=== PATIENT | male | born 1950 | race Caucasian/White ===

== ENCOUNTER → 2017-09-17 | Outpatient (CLI) | payer MEDICARE, OTHER ==
[2017-09-17 11:05] LABS: Basophils % (A) 0 %; Eosinophils # (A) 0.2 k/uL (0-0.7); Eosinophils % (A) 4 %; Lymphocytes # (A) 1.6 k/uL (1.0-4.8); Lymphocytes % (A) 43 %; MCHC 34.3 g/dL (31.0-37.0); MCV 84.4 fL (80.0-100.0); Mean Platelet Volume 8.3; Monocytes # (A) 0.3 k/uL (0-1.0); Monocytes % (A) 7 %; Neutrophils # (A) 1.6 k/uL (1.3-7.7); Neutrophils % (A) 42 %; Platelet Count 174 k/uL (150-450); RDW 13.1 % (11.5-15.5); WBC 3.8 k/uL (3.8-10.6)
[2017-09-17 11:29] LABS: ALT 29 U/L (21-72); AST 23 U/L (17-59); Albumin 4.5 g/dL (3.5-5.0); Alkaline Phosphatase 36 U/L (38-126); Anion Gap 14 mmol/L; Blood Urea Nitrogen 20 mg/dL (9-20); Calcium 10.3 mg/dL (8.4-10.2); Carbon Dioxide 26 mmol/L (22-30); Chloride 101 mmol/L (98-107); Cholesterol 157 mg/dL (<200); Creatine Kinase 60 U/L (55-170); Glucose 176 mg/dL (74-99); HDL Cholesterol 29 mg/dL (40-60); Potassium 4.2 mmol/L (3.5-5.1); Sodium 141 mmol/L (137-145); Total Bilirubin 0.5 mg/dL (0.2-1.3); Total Protein 7.6 g/dL (6.3-8.2); Triglycerides 433 mg/dL (<150); Uric Acid 4.6 mg/dL (3.5-8.5)
[2017-09-17 11:41] LABS: T4, Free (Free Thyroxine) 1.53 ng/dL (0.78-2.19)
[2017-09-17 16:43] LABS: Hemoglobin A1C 7.6 % (4.0-6.0)
== END | disposition home or self-care (01) ==
LOC: LABWHC1 10:12
PROVIDERS: ATTEND Physician Assistant
DX: E04.2 Nontoxic multinodular goiter (principal); I10 Essential (primary) hypertension; E78.00 Pure hypercholesterolemia, unspecified; E11.8 Type 2 diabetes mellitus with unspecified complications; E03.9 Hypothyroidism, unspecified
CPT/HCPCS: 36415; 80053; 80061; 82550; 83036; 83735; 84439; 84443; 84550; 85025

== ENCOUNTER → 2017-11-17 | Outpatient (CLI) | payer MEDICARE, OTHER ==
[2017-11-17 10:26] LABS: Albumin 4.5 g/dL (3.5-5.0); Calcium 10.1 mg/dL (8.4-10.2); Magnesium 1.6 mg/dL (1.6-2.3); Potassium 4.2 mmol/L (3.5-5.1); Total Bilirubin 0.6 mg/dL (0.2-1.3); Total Protein 7.1 g/dL (6.3-8.2)
[2017-11-17 10:42] LABS: T4, Free (Free Thyroxine) 1.45 ng/dL (0.78-2.19)
[2017-11-17 16:53] LABS: Hemoglobin A1C 6.4 % (4.0-6.0)
== END | disposition home or self-care (01) ==
LOC: LABWHC1 09:17
PROVIDERS: ATTEND Internal Medicine
DX: E04.2 Nontoxic multinodular goiter (principal); I10 Essential (primary) hypertension; E11.9 Type 2 diabetes mellitus without complications; E78.2 Mixed hyperlipidemia; E83.42 Hypomagnesemia
CPT/HCPCS: 36415; 80053; 80061; 83036; 83735; 84439; 84443

== ENCOUNTER 2018-02-12 23:58 | Emergency (ER) | payer MEDICARE, OTHER ==
[2018-02-13 00:25] VITALS: TEMP 98.1
--- NOTE | 2018-02-13 01:09 | ED ---
General Adult HPI - General Chief complaint: Shortness of Breath Stated complaint: Hypertension/SOB Time Seen by Provider: 02/13/18 00:41 Source: patient Mode of arrival: ambulatory Limitations: no limitations - History of Present Illness Initial comments: This patient is a 68-year-old man who presents to be evaluated for elevated blood pressure. The patient states that this evening he noted that his blood pressure was approximately 140, and that this is higher than usual for him. He states he has had this sometimes when he has to much salt in his diet. He took an additional dose of his lisinopril, and then had taken his blood pressure again and it was slowly increasing until the systolic blood pressure was 170 and he decided to be seen here. He states that he did feel slightly short of breath, when the blood pressure was that high but that it is better now. He was not having any chest pain, diaphoresis, nausea or vomiting, palpitations, lightheadedness or syncope. -: hour(s) Severity scale (1-10): 0 Consistency: constant Improves with: none Worsens with: none Treatments Prior to Arrival: other (Lisinopril) - Related Data Home Medications Medication Instructions Recorded Confirmed Albuterol Sulfate [Ventolin HFA] 1 - 2 puff INHALATION Q6H PRN 04/08/14 07/16/17 Aspirin 81 mg PO DAILY 04/08/14 07/16/17 Atorvastatin [Lipitor] 10 mg PO HS 04/08/14 07/16/17 Hydrochlorothiazide [Hydrodiuril] 25 mg PO DAILY 04/08/14 07/16/17 Metoprolol Tartrate [Lopressor] 50 mg PO HS 04/08/14 07/16/17 Tamsulosin HCl 0.4 mg PO HS 04/08/14 07/16/17 amLODIPine BESYLATE [Norvasc] 5 mg PO W/SUPPER 04/08/14 07/16/17 metFORMIN HCL [Glucophage] 1,000 mg PO BID 04/08/14 07/16/17 Cimetidine [Tagamet] 200 mg PO DAILY PRN 07/16/17 Exenatide Microspheres [Bydureon] 2 mg SQ WEEKLY PRN 07/16/17 Fenofibrate Nanocrystallized 145 mg PO QAM 07/16/17 [Tricor] Glimepiride [Amaryl] 1 mg PO AC-BRKFST 07/16/17 Icosapent Ethyl [Vascepa] 1 gm PO DAILY 07/16/17 Levothyroxine Sodium [Synthroid] 50 mcg PO DAILY 07/16/17 Lisinopril [Zestril] 5 mg PO 1200 07/16/17 Allergies Allergy/AdvReac Type Severity Reaction Status Date / Time moxifloxacin [From Avelox] Allergy lip Verified 02/13/18 00:25 swelling/SOB banana [Banana] AdvReac Unknown Verified 02/13/18 00:25 trees,grass Allergy Unknown Uncoded 02/13/18 00:25 Review of Systems ROS Statement: Those systems with pertinent positive or pertinent negative responses have been documented in the HPI. ROS Other: All systems not noted in ROS Statement are negative. Constitutional: Denies: fever, weakness Eyes: Denies: vision change Respiratory: Reports: dyspnea (Resolved). 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 Absent: scleral icterus, conjunctival injection ENT exam: Present: normal oropharynx Respiratory exam: Present: normal lung sounds bilaterally. Absent: respiratory distress, wheezes, rales, rhonchi, stridor Cardiovascular Exam: Present: regular rate, normal rhythm, normal heart sounds. Absent: systolic murmur, diastolic murmur, rubs, gallop GI/Abdominal exam: Present: soft. Absent: tenderness, guarding, rebound, mass, pulsatile mass Extremities exam: Present: normal inspection, normal capillary refill. Absent: pedal edema, calf tenderness Back exam: Present: normal inspection. Absent: CVA tenderness (R), CVA tenderness (L) Neurological exam: Present: alert, oriented X3 Skin exam: Present: warm, dry, intact, normal color. Absent: rash Course Vital Signs 02/13/18 02/13/18 00:16 01:34 Temperature 98.1 F Pulse Rate 79 70 Respiratory 16 18 Rate Blood Pressure 149/91 145/83 O2 Sat by Pulse 99 96 Oximetry EKG Findings - EKG Results: EKG: interpreted by JACKIE BORRERO, sinus rhythm, normal axis, normal QRS, normal ST/ T, no acute changes - [place], Pacemaker, Normal: Normal tracing: normal tracing Medical Decision Making - Medical Decision Making I rechecked the patient's blood pressure myself at the initial history and physical and it was 143/85. I had discussion with the patient of asymptomatic hypertension. We discussed additional measures that he can try at home. He will follow with his physician , to ensure that he does not require an increase in his antihypertensives. He does tell me that in the past he had been on higher dose of lisinopril but had been having good success with the lower dose. It is possible that he may require increasing back to his previous dose. We discussed appropriate follow- up and return parameters. Disposition Clinical Impression: Hypertension Disposition: HOME SELF-CARE Condition: Good Instructions: Hypertension (ED) Is patient prescribed a controlled substance at d/c from ED?: No Referrals: Raya Clark MD [Primary Care Provider] - 1-2 days
[2018-02-13 01:36] VITALS: BP 145/83; PULSE 70; RESP 18
== END 2018-02-13 01:43 | disposition home or self-care (01) ==
LOC: EC 23:58
DX: I10 Essential (primary) hypertension (principal); J45.909 Unspecified asthma, uncomplicated; E11.9 Type 2 diabetes mellitus without complications; K21.9 Gastro-esophageal reflux disease without esophagitis; E78.5 Hyperlipidemia, unspecified; E07.9 Disorder of thyroid, unspecified; Z79.82 Long term (current) use of aspirin; Z79.84 Long term (current) use of oral hypoglycemic drugs; Z79.899 Other long term (current) drug therapy; Z88.1 Allergy status to other antibiotic agents; Z91.018 Allergy to other foods; Z91.048 Other nonmedicinal substance allergy status
CPT/HCPCS: 93005; 99284

== ENCOUNTER → 2018-09-20 | Outpatient (CLI) | payer MEDICARE, OTHER ==
[2018-09-20 09:36] LABS: Basophils % (A) 1 %; Eosinophils # (A) 0.2 k/uL (0-0.7); Eosinophils % (A) 3 %; HCT 41.6 % (39.0-53.0); HGB 13.7 gm/dL (13.0-17.5); Lymphocytes # (A) 1.7 k/uL (1.0-4.8); Lymphocytes % (A) 39 %; MCH 29.1 pg (25.0-35.0); MCV 88.2 fL (80.0-100.0); Mean Platelet Volume 7.6; Monocytes # (A) 0.3 k/uL (0-1.0); Monocytes % (A) 7 %; Neutrophils % (A) 46 %; Platelet Count 201 k/uL (150-450); RBC 4.71 m/uL (4.30-5.90); RDW 13.4 % (11.5-15.5); WBC 4.4 k/uL (3.8-10.6)
[2018-09-20 09:38] LABS: Appearance,Urine Clear (Clear); Bilirubin,Urine Negative (Negative); Blood,Urine Negative (Negative); Color,Urine Yellow; Glucose,Urine (UA) Negative (Negative); Ketones,Urine Negative (Negative); Leukocyte Esterase,Urine Negative (Negative); Nitrite,Urine Negative (Negative); Protein,Urine Negative (Negative); Specific Gravity,Urine 1.014 (1.001-1.035); Urobilinogen,Urine <2.0 mg/dL (<2.0)
[2018-09-20 18:34] LABS: Magnesium 1.7 mg/dL (1.5-2.4)
[2018-09-20 18:43] LABS: Albumin 4.7 g/dL (3.80-4.90); Albumin/Globulin Ratio 2.14 (1.60-3.17); Anion Gap 8.3 mmol/L (4.00-12.00); Calcium 10.6 mg/dL (8.7-10.3); Carbon Dioxide 25.7 mmol/L (21.6-31.8); Globulin 2.2 g/dL (1.6-3.3); Potassium 4.4 mmol/L (3.5-5.5); Total Bilirubin 0.6 mg/dL (0.3-1.2); Total Protein 6.9 g/dL (6.2-8.2); Uric Acid 4.9 mg/dL (3.7-8.7)
[2018-09-20 18:44] LABS: T4, Free (Free Thyroxine) 1.5 ng/dL (0.80-1.80)
[2018-09-20 21:44] LABS: Hemoglobin A1C 6.5 % (4.0-6.0)
[2018-09-22 09:53] LABS: LDL Cholesterol,Calculated 72.2
[2018-09-22 10:02] LABS: VLDL Calculation 45.8
== END | disposition home or self-care (01) ==
LOC: LABWHC1 09:04
PROVIDERS: ATTEND Internal Medicine
DX: N40.1 Benign prostatic hyperplasia with lower urinary tract symptoms (principal); I10 Essential (primary) hypertension; E03.9 Hypothyroidism, unspecified; E11.8 Type 2 diabetes mellitus with unspecified complications; E55.9 Vitamin D deficiency, unspecified; E04.2 Nontoxic multinodular goiter; E78.2 Mixed hyperlipidemia
CPT/HCPCS: 36415; 80053; 80061; 81003; 82043; 82306; 82550; 82570; 83036; 83735; 84153; 84439; 84443; 84481; 84550; 85025

== ENCOUNTER → 2019-01-27 | Outpatient (CLI) | payer MEDICARE, OTHER ==
--- NOTE | 2019-01-27 16:09 | XR ---
EXAMINATION TYPE: XR ribs RT DATE OF EXAM: 01/27/2019 COMPARISON: Chest x-ray of 12/04/2015 HISTORY: Lower right rib pain after fall TECHNIQUE: Frontal and oblique views of the right ribs were obtained. FINDINGS: The right lung remains overall well aerated with only minimal strand-like right infrahilar atelectasis. Very subtle nondisplaced rib fracture is seen of the posterior aspect of rib 10. There i s no additional acute displaced right rib fracture nor healed right rib fracture deformity IMPRESSION: There is subtle nondisplaced acute fractures of the posterior margin of rib 10 on the rig ht. No additional right rib fracture is seen.
== END | disposition home or self-care (01) ==
LOC: RADXRMAIN 12:07
PROVIDERS: ATTEND Internal Medicine
DX: S22.41XA Multiple fractures of ribs, right side, initial encounter for closed fracture (principal)

== ENCOUNTER → 2019-01-28 | Outpatient (CLI) | payer MEDICARE, OTHER ==
--- NOTE | 2019-01-29 12:35 | US ---
EXAMINATION TYPE: US carotid duplex BILAT DATE OF EXAM: 01/28/2019 COMPARISON: NONE CLINICAL HISTORY: I65.23 Occlusion and stenosis of bilateral carotid. Stenosis EXAM MEASUREMENTS: RIGHT: Peak Systolic Velocity (PSV) cm/sec ----- Right CCA: 118 ----- Right ICA: 109 ----- Right ECA: 94.4 ICA/CCA ratio: 1.23 RIGHT: End Diastole cm/sec ----- Right CCA: 27.2 ----- Right ICA: 24.5 ----- Right ECA: 12.9 LEFT: Peak Systolic Velocity (PSV) cm/sec ----- Left CCA: 108 ----- Left ICA: 82.2 ----- Left ECA: 95.8 ICA/CCA ratio: 0.9 LEFT: End Diastole cm/sec ----- Left CCA: 23.1 ----- Left ICA: 29.2 ----- Left ECA: 14.3 VERTEBRALS (direction of flow): Right Vertebral: Unable to visualize Left Vertebral: Antegrade Rhythm: Normal No significant stenosis seen IMPRESSION: 1. No significant flow-limiting stenosis. Criteria for Assigning % of Stenosis / Diameter reduction (Estimation based on the indirect measurements of the internal carotid artery velocities (ICA PSV). 1. Normal (no stenosis)=ICA PSV < 125 cm/s: ratio < 2.0: ICA EDV<40 cm/s. 2. Less than 50% stenosis=ICA PSV < 125 cm/s: ratio < 2.0: ICA EDV<40 cm/s. 3. 50 to 69% stenosis=ICA PSV of 125 to 230 cm/s: ration 2.0 ? 4.0: ICA EDV 40-100 cm/s. 4. Greater than 70% stenosis to near occlusion= ICA PSV > 230 cm/s: ratio > 4.0: ICA EDV > 100 cm/s. 5. Near occlusion= ICA PSV velocities may be low or undetectable: variable ratio and ICA EDV. 6. Total occlusion=unable to detect flow.
== END | disposition home or self-care (01) ==
LOC: RADUSWWP 16:21
PROVIDERS: ATTEND Internal Medicine
DX: I65.23 Occlusion and stenosis of bilateral carotid arteries (principal)
CPT/HCPCS: 93880

== ENCOUNTER 2019-02-24 20:17 | Emergency (ER) | payer MEDICARE, OTHER ==
[2019-02-24] MEDS ORDERED: SODIUM CHLORIDE 0.9% 500 ML 500 ML IV STA (20:53)
[2019-02-24] MEDS ORDERED: FAMOTIDINE 20 MG/2 ML VIAL IV STA (20:54)
--- NOTE | 2019-02-24 21:34 | ED ---
General Adult HPI - General Chief complaint: Abdominal Pain Stated complaint: abdominal pain Time Seen by Provider: 02/24/19 20:32 Source: patient, family, RN notes reviewed Mode of arrival: ambulatory Limitations: no limitations - History of Present Illness Initial comments: 69-year-old male with a past medical history of diabetes, asthma, GERD, hyperl ipidemia, hypertension presents to the emergency department for a chief complaint of epigastric pain. Patient states he has had dull achy epigastric pain since last night. Patient states it is also in the right upper quadrant. Patient states he is somewhat nauseous but denies any vomiting or diarrhea. Patient denies any lower abdominal pain. Does state this pain radiates into his chest as well. Denies shortness of breath. Patient does admit that eating may worsen the pain. Denies any alleviating factors including Pepcid and Tagamet. Patient states he had a cardiac cath done 8 years ago which was normal. Patient has no other complaints at this time including shortness of breath, chest pain, abdominal pain, nausea or vomiting, headache, or visual changes. - Related Data Home Medications Medication Instructions Recorded Confirmed Albuterol Sulfate [Ventolin HFA] 1 - 2 puff INHALATION Q6H PRN 04/08/14 07/16/17 Aspirin 81 mg PO DAILY 04/08/14 07/16/17 Atorvastatin [Lipitor] 10 mg PO HS 04/08/14 07/16/17 Hydrochlorothiazide [Hydrodiuril] 25 mg PO DAILY 04/08/14 07/16/17 Metoprolol Tartrate [Lopressor] 50 mg PO HS 04/08/14 07/16/17 Tamsulosin HCl 0.4 mg PO HS 04/08/14 07/16/17 amLODIPine BESYLATE [Norvasc] 5 mg PO W/SUPPER 04/08/14 07/16/17 metFORMIN HCL [Glucophage] 1,000 mg PO BID 04/08/14 07/16/17 Cimetidine [Tagamet] 200 mg PO DAILY PRN 07/16/17 Exenatide Microspheres [Bydureon] 2 mg SQ WEEKLY PRN 07/16/17 Fenofibrate Nanocrystallized 145 mg PO QAM 07/16/17 [Tricor] Glimepiride [Amaryl] 1 mg PO AC-BRKFST 07/16/17 Icosapent Ethyl [Vascepa] 1 gm PO DAILY 07/16/17 Levothyroxine Sodium [Synthroid] 50 mcg PO DAILY 07/16/17 Lisinopril [Zestril] 5 mg PO 1200 07/16/17 Previous Rx's Medication Instructions Recorded Famotidine [Pepcid] 20 mg PO BID #20 tablet 02/24/19 Allergies Allergy/AdvReac Type Severity Reaction Status Date / Time moxifloxacin [From Avelox] Allergy lip Verified 02/24/19 20:22 swelling/SOB banana [Banana] AdvReac Unknown Verified 02/24/19 20:22 trees,grass Allergy Unknown Uncoded 02/24/19 20:22 Review of Systems ROS Statement: Those systems with pertinent positive or pertinent negative responses have been documented in the HPI. ROS Other: All systems not noted in ROS Statement are negative. 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 Absent: scleral icterus, conjunctival injection, periorbital swelling ENT exam: Present: normal exam, mucous membranes moist Neck exam: Present: normal inspection. Absent: tenderness, meningismus, lymphadenopathy Respiratory exam: Present: normal lung sounds bilaterally. Absent: respiratory distress, wheezes, rales, rhonchi, stridor Cardiovascular Exam: Present: regular rate, normal rhythm, normal heart sounds. Absent: systolic murmur, diastolic murmur, rubs, gallop, clicks GI/Abdominal exam: Present: soft, tenderness (Tenderness noted in the epigastric area but worse in the right upper quadrant. Positive Silvestre sign.), normal bowel sounds. Absent: distended, guarding, rebound, rigid Neurological exam: Present: alert, oriented X3 Psychiatric exam: Present: normal affect, normal mood Course Vital Signs 02/24/19 02/24/19 20:19 23:10 Temperature 98.3 F Pulse Rate 94 72 Respiratory 18 17 Rate Blood Pressure 145/76 146/85 O2 Sat by Pulse 98 98 Oximetry EKG Findings - EKG Comments: EKG Findings:: Normal sinus rhythm, ventricular rate 86, NC interval 168, QTC 423 Medical Decision Making - Medical Decision Making 69-year-old male with a past medical history of diabetes, asthma, GERD, hyperlipidemia, hypertension presents for a chief complaint of epigastric pain. States this worsens after eating. Admits to nausea denies vomiting. Denies an y chest pain but states that sometimes epigastric pain radiates into his chest. On exam patient does have tenderness of the epigastrium as well as right upper quadrant with a positive Silvestre sign. No lower abdominal tenderness. CBC is unremarkable. Calcium elevated at 10.6 which is stable. Lipase is 483 which is only minimally elevated, unlikely to be an acute pancreatitis.. X-ray of the abdomen shows a nonacute abdomen. Ultrasound of the right upper quadrant shows no acute findings. There is hepatic steatosis noted as well as a 4 mm gallbladder polyp. EKG shows a normal sinus rhythm without any ST elevation or depression. Troponin is negative. At this time I do not see an emergent cause for this pain. Differential diagnoses include gastritis versus gallbladder dysfunction. Patient will be given Pepcid for this. He will follow up with GI and surgery for possible HIDA scan and scope. He will return if he has any worsening symptoms. - Lab Data Result diagrams: 02/24/19 21:40 02/24/19 21:40 Lab Results 02/24/19 02/24/19 02/24/19 Range/Units 21:40 21:40 21:40 WBC 4.4 (3.8-10.6) k/uL RBC 4.32 (4.30-5.90) m/uL Hgb 12.8 L (13.0-17.5) gm/dL Hct 38.0 L (39.0-53.0) % MCV 88.0 (80.0-100.0) fL MCH 29.6 (25.0-35.0) pg MCHC 33.6 (31.0-37.0) g/dL RDW 14.1 (11.5-15.5) % Plt Count 209 (150-450) k/uL Neutrophils % 48 % Lymphocytes % 36 % Monocytes % 7 % Eosinophils % 6 % Basophils % 0 % Neutrophils # 2.1 (1.3-7.7) k/uL Lymphocytes # 1.6 (1.0-4.8) k/uL Monocytes # 0.3 (0-1.0) k/uL Eosinophils # 0.3 (0-0.7) k/uL Basophils # 0.0 (0-0.2) k/uL PT 10.7 (9.0-12.0) sec INR 1.0 (<1.2) APTT 24.5 (22.0-30.0) sec Sodium 138 (137-145) mmol/L Potassium 4.2 (3.5-5.1) mmol/L Chloride 102 (98-107) mmol/L Carbon Dioxide 24 (22-30) mmol/L Anion Gap 12 mmol/L BUN 31 H (9-20) mg/dL Creatinine 1.18 (0.66-1.25) mg/dL Est GFR (CKD-EPI)AfAm 72 (>60 ml/min/1.73 sqM) Est GFR (CKD-EPI)NonAf 63 (>60 ml/min/1.73 sqM) Glucose 206 H (74-99) mg/dL Calcium 10.6 H (8.4-10.2) mg/dL Total Bilirubin 0.3 (0.2-1.3) mg/dL AST 21 (17-59) U/L ALT 19 L (21-72) U/L Alkaline Phosphatase 28 L (38-126) U/L Troponin I (0.000-0.034) ng/mL Total Protein 7.2 (6.3-8.2) g/dL Albumin 4.4 (3.5-5.0) g/dL Amylase 72 (30-110) U/L Lipase 483 H (23-300) U/L Urine Color Urine Appearance (Clear) Urine pH (5.0-8.0) Ur Specific [place] (1.001-1.035) Urine Protein (Negative) Urine Glucose (UA) (Negative) Urine Ketones (Negative) Urine Blood (Negative) Urine Nitrite (Negative) Urine Bilirubin (Negative) Urine Urobilinogen (<2.0) mg/dL Ur Leukocyte Esterase (Negative) 02/24/19 02/24/19 Range/Units 21:40 21:40 WBC (3.8-10.6) k/uL RBC (4.30-5.90) m/uL Hgb (13.0-17.5) gm/dL Hct (39.0-53.0) % MCV (80.0-100.0) fL MCH (25.0-35.0) pg MCHC (31.0-37.0) g/dL RDW (11.5-15.5) % Plt Count (150-450) k/uL Neutrophils % % Lymphocytes % % Monocytes % % Eosinophils % % Basophils % % Neutrophils # (1.3-7.7) k/uL Lymphocytes # (1.0-4.8) k/uL Monocytes # (0-1.0) k/uL Eosinophils # (0-0.7) k/uL Basophils # (0-0.2) k/uL PT (9.0-12.0) sec INR (<1.2) APTT (22.0-30.0) sec Sodium (137-145) mmol/L Potassium (3.5-5.1) mmol/L Chloride (98-107) mmol/L Carbon Dioxide (22-30) mmol/L Anion Gap mmol/L BUN (9-20) mg/dL Creatinine (0.66-1.25) mg/dL Est GFR (CKD-EPI)AfAm (>60 ml/min/1.73 sqM) Est GFR (CKD-EPI)NonAf (>60 ml/min/1.73 sqM) Glucose (74-99) mg/dL Calcium (8.4-10.2) mg/dL Total Bilirubin (0.2-1.3) mg/dL AST (17-59) U/L ALT (21-72) U/L Alkaline Phosphatase (38-126) U/L Troponin I <0.012 (0.000-0.034) ng/mL Total Protein (6.3-8.2) g/dL Albumin (3.5-5.0) g/dL Amylase (30-110) U/L Lipase (23-300) U/L Urine Color Light Yellow Urine Appearance Clear (Clear) Urine pH 5.5 (5.0-8.0) Ur Specific [place] 1.014 (1.001-1.035) Urine Protein Negative (Negative) Urine Glucose (UA) Negative (Negative) Urine Ketones Negative (Negative) Urine Blood Negative (Negative) Urine Nitrite Negative (Negative) Urine Bilirubin Negative (Negative) Urine Urobilinogen <2.0 (<2.0) mg/dL Ur Leukocyte Esterase Negative (Negative) Disposition Clinical Impression: Epigastric pain Disposition: HOME SELF-CARE Condition: Good Instructions (If sedation given, give patient instructions): Abdominal Pain (ED) Additional Instructions: Please follow up with a GI as well as surgery for abdominal pain and possible HIDA scan. Please take Pepcid as directed. Please return to the emergency department if you have any worsening symptoms. Prescriptions: Famotidine [Pepcid] 20 mg PO BID #20 tablet Is patient prescribed a controlled substance at d/c from ED?: No Referrals: Raya Clark MD [Primary Care Provider] - 1-2 days Andreina Angeles MD [STAFF PHYSICIAN] - 1-2 days Cl Rogers DO [Doctor of Osteopathic Medicine] - 1-2 days Time of Disposition: 23:22
--- NOTE | 2019-02-24 21:43 | XR ---
EXAMINATION TYPE: XR abdomen 2V DATE OF EXAM: 02/24/2019 COMPARISON: NONE HISTORY: Abdominal pain TECHNIQUE: 3 views FINDINGS: Supine and upright views were obtained and show no sign of intestinal obstruction or pneumo peritoneum. Fecal pattern is normal. There are no pathologic calcifications over the kidneys. Lung ba ses are clear. IMPRESSION: Nonacute abdomen.
[2019-02-24 22:04] LABS: Basophils % (A) 0 %; Eosinophils # (A) 0.3 k/uL (0-0.7); Eosinophils % (A) 6 %; HGB 12.8 gm/dL (13.0-17.5); Lymphocytes # (A) 1.6 k/uL (1.0-4.8); Lymphocytes % (A) 36 %; MCH 29.6 pg (25.0-35.0); MCHC 33.6 g/dL (31.0-37.0); Mean Platelet Volume 7.8; Monocytes # (A) 0.3 k/uL (0-1.0); Monocytes % (A) 7 %; Neutrophils # (A) 2.1 k/uL (1.3-7.7); Neutrophils % (A) 48 %; Platelet Count 209 k/uL (150-450); RBC 4.32 m/uL (4.30-5.90); RDW 14.1 % (11.5-15.5); WBC 4.4 k/uL (3.8-10.6)
[2019-02-24 22:07] LABS: Appearance,Urine Clear (Clear); Bilirubin,Urine Negative (Negative); Blood,Urine Negative (Negative); Color,Urine Light Yellow; Glucose,Urine (UA) Negative (Negative); Ketones,Urine Negative (Negative); Leukocyte Esterase,Urine Negative (Negative); Nitrite,Urine Negative (Negative); PH, Urine 5.5 (5.0-8.0); Protein,Urine Negative (Negative); Specific Gravity,Urine 1.014 (1.001-1.035); Urobilinogen,Urine <2.0 mg/dL (<2.0)
[2019-02-24 22:12] LABS: Partial Thromboplastin Time 24.5 sec (22.0-30.0); Prothrombin Time 10.7 sec (9.0-12.0)
[2019-02-24 22:16] LABS: Albumin 4.4 g/dL (3.5-5.0); Calcium 10.6 mg/dL (8.4-10.2); Potassium 4.2 mmol/L (3.5-5.1); Total Bilirubin 0.3 mg/dL (0.2-1.3); Total Protein 7.2 g/dL (6.3-8.2)
[2019-02-24] MEDS ORDERED: MAG HYDROX/AL HYDROX/SIMETH 30 ML, HYOSCYAMINE ELIXIR 10 ML, CIMETIDINE HCL 300 MG, LID... PO STA ×4 (22:24)
--- NOTE | 2019-02-24 22:40 | US ---
EXAM: US Abdomen Limited, Right Upper Quadrant CLINICAL HISTORY: Pain TECHNIQUE: Real-time ultrasound of the right upper quadrant with image documentation. COMPARISON: No relevant prior studies available. FINDINGS: Liver: Liver is upper limits of normal in size. Diffusely increased hepatic echogenicity is suggestive of steatosis. No focal lesions. Gallbladder: 4 mm non-shadowing echogenic focus associated with the gallbladder wall is favored to represent a polyp. No definite shadowing gallstones. Common bile duct: Unremarkable as visualized. No stones. No dilation. Pancreas: Unremarkable as visualized. Right kidney: Unremarkable. No stones. No solid mass. No hydronephrosis. IMPRESSION: No acute findings. Hepatic steatosis. 4 mm gallbladder polyp.
[2019-02-24 23:14] VITALS: RESP 17
[2019-02-24 23:30] VITALS: BP 156/92; PULSE 70; TEMP 98
== END 2019-02-24 23:30 | disposition home or self-care (01) ==
LOC: EC 20:17
DX: R10.13 Epigastric pain (principal); R11.0 Nausea; R10.11 Right upper quadrant pain; K76.0 Fatty (change of) liver, not elsewhere classified; K82.4 Cholesterolosis of gallbladder; E11.9 Type 2 diabetes mellitus without complications; J45.909 Unspecified asthma, uncomplicated; I10 Essential (primary) hypertension; E78.5 Hyperlipidemia, unspecified; E07.9 Disorder of thyroid, unspecified; Z79.890 Hormone replacement therapy; Z79.84 Long term (current) use of oral hypoglycemic drugs; Z79.82 Long term (current) use of aspirin; Z79.899 Other long term (current) drug therapy; Z88.1 Allergy status to other antibiotic agents; Z91.018 Allergy to other foods
CPT/HCPCS: 36415; 74019; 76705; 80053; 81003; 82150; 83690; 84484; 85025; 85610; 85730; 93005; 96361; 96374; 99284

== ENCOUNTER 2019-03-24 20:10 | Emergency (ER) | payer MEDICARE, OTHER ==
[2019-03-24 20:38] VITALS: BP 161/81; PULSE 99; RESP 17; TEMP 98.4
[2019-03-24] MEDS ORDERED: PROPARACAINE 0.5% OPHTH DROPS 15 ML BTL LEFT EYE STA (20:50)
[2019-03-24] MEDS ORDERED: ERYTHROMYCIN 5 MG/GM OPHTH OINT 3.5 GM TUBE LEFT EYE STA (21:34)
--- NOTE | 2019-03-24 21:36 | ED ---
General Adult HPI - General Chief complaint: Eye Problems Stated complaint: Blured vision L eye Time Seen by Provider: 03/24/19 20:41 Source: patient, family, RN notes reviewed, old records reviewed Mode of arrival: ambulatory Limitations: no limitations - History of Present Illness Initial comments: 69-year-old male patient past history significant for type 2 diabetes, ischemic retinopathy of right eye thought to be secondary to hypotension from blood pressure medication presents ED chief complaint of one-day purulent drainage and cloudy vision in left eye. Patient reports that he woke up noted that he had drainage from his left eye, green, describes that his vision was slightly cloudy. This does improve with blinking. Patient states that his eye does feel scratchy, however denies any significant pain. Rates his pain as a 1. Patient denies any flashes or floaters. Denies any trauma to head or eye. Patient does report that he has been rubbing his eyes. Systemic: Pt denies fatigue, fever/chills, rash. Pt denies weakness, night sweats, weight loss. Neuro: Pt denies headache, visual disturbances, syncope or pre-syncope. HEENT: Pt denies rhinorrhea, pharyngitis or notable lymphadenopathy. Cardiopulmonary: Pt denies chest pain, SOB, heart palpitations, dyspnea on exertion. Abdominal/GI: Pt denies abdominal pain, n/v/d. : Pt denies dysuria, burning w/ urination, frequency/urgency. Denies new onset urinary or bowel incontinence. MSK: Pt denies myalgia, loss of strength or function in extremities. Neuro: Pt denies new onset weakness, paresthesias. - Related Data Home Medications Medication Instructions Recorded Confirmed Albuterol Sulfate [Ventolin HFA] 1 - 2 puff INHALATION RT-QID PRN 04/08/14 03/24/19 Aspirin 81 mg PO DAILY 04/08/14 03/24/19 Atorvastatin [Lipitor] 10 mg PO HS 04/08/14 03/24/19 Hydrochlorothiazide [Hydrodiuril] 25 mg PO DAILY 04/08/14 03/24/19 Metoprolol Tartrate [Lopressor] 50 mg PO BID 04/08/14 03/24/19 Tamsulosin HCl 0.4 mg PO HS 04/08/14 03/24/19 amLODIPine BESYLATE [Norvasc] 5 mg PO DAILY 04/08/14 03/24/19 metFORMIN HCL [Glucophage] 1,000 mg PO BID 04/08/14 03/24/19 Exenatide Microspheres [Bydureon] 2 mg SQ Q7D 07/16/17 03/24/19 Fenofibrate Nanocrystallized 145 mg PO DAILY 07/16/17 03/24/19 [Tricor] Glimepiride [Amaryl] 1 mg PO AC-BRKFST 07/16/17 03/24/19 Levothyroxine Sodium [Synthroid] 50 mcg PO DAILY 07/16/17 03/24/19 Lisinopril [Zestril] 5 mg PO 1200 07/16/17 03/24/19 [place]-3 Fatty Acids/Fish Oil [Fish 1 cap PO DAILY 03/24/19 03/24/19 Oil 1,000 mg Softgel] Vascepa 1 Gm 1 gm PO BID 03/24/19 03/24/19 Previous Rx's Medication Instructions Recorded Erythromycin Ophth Oint [Romycin 1 applic LEFT EYE QID 5 Days #1 03/24/19 Ophth Oint] tube Allergies Allergy/AdvReac Type Severity Reaction Status Date / Time moxifloxacin [From Avelox] Allergy lip Verified 03/24/19 20:48 swelling/SOB banana [Banana] AdvReac Unknown Verified 03/24/19 20:48 trees,grass Allergy Unknown Uncoded 03/24/19 20:39 Review of Systems ROS Statement: Those systems with pertinent positive or pertinent negative responses have been documented in the HPI. ROS Other: All systems not noted in ROS Statement are negative. 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 HEENT: NC/AT, trachea midline, neck supple, no lymphadenopathy. Posterior pharynx non erythematous, without exudates. External ears appear normal, without discharge. Mucous membranes moist. Eyes PERRLA, EOM intact. There is no scleral icterus. Purulent drainage noted at the medial canthus, lash matting. Green. No injection. Agee sustain revealed, uptake at 6:00. IOP average of 12 bilaterally. No pallor noted. Cardiopulmonary: RRR, no murmurs, rubs or gallops, no JVD noted. Lungs CTAB in anterior and posterior roblero. No peripheral edema. Abdominal exam: Abdomen soft and non-distended. Abdomen non-tender to palpation in all 4 quadrants. Bowel sounds active in LLQ. No hepatosplenomegaly. No ecchymosis Neuro: CN II-XII grossly intact. No nuchal rigidity. No raccon eyes, no finley sign, no hemotympanum. No cervical spinal tenderness. MSK: No posterior calf tenderness bilaterally, homans sign negative bilaterally. Posterior tibialis and radial pulse +2 bilaterally. Sensation intact in upper and lower extremities. Full active ROM in upper and lower extremities, 5/5 stregnth. Limitations: no limitations Course Vital Signs 03/24/19 20:35 Temperature 98.4 F Pulse Rate 99 Respiratory 17 Rate Blood Pressure 161/81 O2 Sat by Pulse 98 Oximetry Medical Decision Making - Medical Decision Making 69-year-old male patient past history significant for type 2 diabetes, ischemic retinopathy of right eye thought to be secondary to hypotension from blood pressure medication presents ED chief complaint of one-day purulent drainage and cloudy vision in left eye. Patient reports that he woke up noted that he had drainage from his left eye, green, describes that his vision was slightly jefe udy. This does improve with blinking. Patient states that his eye does feel scratchy, however denies any significant pain. Rates his pain as a 1. Patient denies any flashes or floaters. Denies any trauma to head or eye. Patient does report that he has been rubbing his eyes. Pt VSS, afebrile. Physical exam displayed: Purulent drainage noted at the medial canthus, lash matting. Green. No injection. Fourescence sustain revealed, uptake at 6:00. IOP average of 12 bilaterally. Visual acuity 20/30 of affected eye. Physical exam suggestive of possible blepharitis with associated corneal abrasion. Patient will be placed on erythromycin ophthalmic ointment, will follow-up with dock or pier laborer tomorrow, return precautions discussed. Case discussed in depth with Dr. Jane. Patient is not a contact lens user. Disposition Clinical Impression: Corneal abrasion, left Disposition: HOME SELF-CARE Condition: Stable Instructions (If sedation given, give patient instructions): Blepharitis (ED), Corneal Abrasion (ED) Additional Instructions: Patient to adhere to previously discussed treatment plan and will take medication(s) as directed. Patient to follow up with PCP in 1-2 days. Patient to return to ED if symptoms do not improve. Use eye ointment as prescribed. Call dock or pier laborer first thing in the morning. Return to ER if condition worsens in any way. Prescriptions: Erythromycin Ophth Oint [Romycin Ophth Oint] 1 applic LEFT EYE QID 5 Days #1 tube Is patient prescribed a controlled substance at d/c from ED?: No Referrals: Raya Clark MD [Primary Care Provider] - 1-2 days Ai Flanagan MD [STAFF PHYSICIAN] - 1-2 days
== END 2019-03-24 22:11 | disposition home or self-care (01) ==
LOC: EC 20:10
DX: S05.02XA Injury of conjunctiva and corneal abrasion without foreign body, left eye, initial encounter (principal); J45.909 Unspecified asthma, uncomplicated; E78.5 Hyperlipidemia, unspecified; I10 Essential (primary) hypertension; N42.9 Disorder of prostate, unspecified; E07.9 Disorder of thyroid, unspecified; E11.319 Type 2 diabetes mellitus with unspecified diabetic retinopathy without macular edema; Z79.82 Long term (current) use of aspirin; Z79.84 Long term (current) use of oral hypoglycemic drugs; Z79.890 Hormone replacement therapy; Z79.899 Other long term (current) drug therapy; Z88.1 Allergy status to other antibiotic agents; Z91.018 Allergy to other foods; Z91.048 Other nonmedicinal substance allergy status
CPT/HCPCS: 87070; 87205; 99284

== ENCOUNTER 2019-05-25 22:22 | Inpatient (IN) | payer MEDICARE, OTHER ==
[2019-05-25] MEDS ORDERED: DILTIAZEM DRIP BOLUS FROM BAG 1 MG SOLN IV ONE (22:40)
--- NOTE | 2019-05-25 22:44 | ED ---
General Adult HPI - General Chief complaint: Recheck/Abnormal Lab/Rx Stated complaint: High BP Time Seen by Provider: 05/25/19 22:25 Source: patient, RN notes reviewed Mode of arrival: ambulatory Limitations: no limitations - History of Present Illness Initial comments: Patient is a pleasant 69-year-old male presenting to the emergency department with concerns for high blood pressure. Patient states he felt lightheaded and Matteo an hour ago and took his blood pressure. Her pressure was as high as 180/110. Patient does admit to having some palpitations. Patient states he may be slightly short of breath. No chest pain. No history of similar symptoms previously. Patient states he may have some sort of irregular heartbeat however has never been diagnosed with atrial fibrillation and is not on any anticoagulation. Patient was taking prep for plans for colonoscopy tomorrow. - Related Data Home Medications Medication Instructions Recorded Confirmed Albuterol Sulfate [Ventolin HFA] 2 puff INHALATION RT-Q4H PRN 04/08/14 05/25/19 Aspirin 81 mg PO DAILY 04/08/14 05/25/19 Atorvastatin [Lipitor] 10 mg PO HS 04/08/14 05/25/19 Hydrochlorothiazide [Hydrodiuril] 25 mg PO DAILY@1200 04/08/14 05/25/19 Metoprolol Tartrate [Lopressor] 50 mg PO HS 04/08/14 05/25/19 Tamsulosin HCl 0.4 mg PO HS 04/08/14 05/25/19 metFORMIN HCL [Glucophage] 1,000 mg PO BID 04/08/14 05/25/19 Fenofibrate Nanocrystallized 145 mg PO DAILY 07/16/17 05/25/19 [Tricor] Glimepiride [Amaryl] 1 mg PO AC-BRKFST 07/16/17 05/25/19 Levothyroxine Sodium [Synthroid] 50 mcg PO DAILY 07/16/17 05/25/19 Famotidine [Pepcid] 20 mg PO BID 05/25/19 05/25/19 Lisinopril [Prinivil] 10 mg PO HS 05/25/19 05/25/19 Lisinopril [Zestril] 10 mg PO DAILY@1700 05/25/19 05/25/19 Magnesium Oxide 400 mg PO DAILY 05/25/19 05/25/19 Vascepa 1gm 1 cap PO DAILY 05/25/19 05/25/19 Allergies Allergy/AdvReac Type Severity Reaction Status Date / Time grass pollen Allergy Dyspnea Verified 05/25/19 23:45 moxifloxacin [From Avelox] Allergy lip Verified 05/25/19 23:45 swelling/SOB tree and shrub pollen Allergy Dyspnea Verified 05/25/19 23:45 banana [Banana] AdvReac Swelling Verified 05/25/19 23:45 Review of Systems ROS Statement: Those systems with pertinent positive or pertinent negative responses have been documented in the HPI. ROS Other: All systems not noted in ROS Statement are negative. Constitutional: Denies: fever Eyes: Denies: eye pain ENT: Denies: ear pain Respiratory: Reports: as per HPI. 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 , + COLOGARD TEST History of Any Multi-Drug Resistant Organisms: None Reported Past Surgical History: Heart Catheterization Additional Past Surgical History / Comment(s): deviated septum repair, COLONOSCOPY, Past Anesthesia/Blood Transfusion Reactions: No Reported Reaction Past Psychological History: No Psychological Hx Reported Smoking Status: Former smoker Past Alcohol Use History: None Reported Past Drug Use History: None Reported - Past Family History Mother Family Medical History: No Reported History General Exam Limitations: no limitations General appearance: alert, in no apparent distress Head exam: Present: normocephalic Eye exam: Present: normal appearance, PERRL ENT exam: Present: normal oropharynx Neck exam: Present: normal inspection Respiratory exam: Present: rhonchi (Right base) Cardiovascular Exam: Present: tachycardia, irregular rhythm Expanded Peripheral pulses: 2+: Radial (R), Radial (L), Dorsalis Pedis (R), Dorsalis Pedis (L) GI/Abdominal exam: Present: soft. Absent: tenderness Extremities exam: Present: normal inspection Neurological exam: Present: alert Psychiatric exam: Present: normal affect, normal mood Skin exam: Present: normal color Course Vital Signs 05/25/19 05/25/19 05/25/19 22:24 22:35 22:50 Temperature 98.1 F Pulse Rate 129 H 137 H 104 H Respiratory 18 18 18 Rate Blood Pressure 156/101 139/115 158/106 O2 Sat by Pulse 99 100 100 Oximetry 05/25/19 23:20 Temperature Pulse Rate 94 Respiratory 18 Rate Blood Pressure 146/88 O2 Sat by Pulse Oximetry EKG Findings - EKG Comments: EKG Findings:: A. fib with RVR, rate 129. QRS 108. QT 306. QTc 448. Normal axis. Normal QRS. No acute ST change. Medical Decision Making - Medical Decision Making Patient reevaluated. Patient and family updated. Heart rate has improved to 96 however remains in atrial fibrillation. Blood pressure has improved. Patient still is no chest discomfort. Patient family updated on results and plan. Case was discussed in detail with Dr. White, covering for Dr. Clark, who will admit. Cardiology has been paged. - Lab Data Result diagrams: 05/25/19 22:40 05/25/19 22:40 Lab Results 05/25/19 05/25/19 05/25/19 Range/Units 22:40 22:40 22:40 WBC 4.5 (3.8-10.6) k/uL RBC 4.84 (4.30-5.90) m/uL Hgb 14.0 (13.0-17.5) gm/dL Hct 42.0 (39.0-53.0) % MCV 86.8 (80.0-100.0) fL MCH 28.9 (25.0-35.0) pg MCHC 33.3 (31.0-37.0) g/dL RDW 12.8 (11.5-15.5) % Plt Count 208 (150-450) k/uL Neutrophils % (Manual) 43 % Lymphocytes % (Manual) 44 % Monocytes % (Manual) 6 % Eosinophils % (Manual) 7 % Neutrophils # (Manual) 1.94 (1.3-7.7) k/uL Lymphocytes # (Manual) 1.98 (1.0-4.8) k/uL Monocytes # (Manual) 0.27 (0-1.0) k/uL Eosinophils # (Manual) 0.32 (0-0.7) k/uL Nucleated RBCs 0 (0-0) /100 WBC Manual Slide Review Performed PT 10.5 (9.0-12.0) sec INR 1.0 (<1.2) APTT 24.2 (22.0-30.0) sec Sodium 135 L (137-145) mmol/L Potassium 4.1 (3.5-5.1) mmol/L Chloride 99 (98-107) mmol/L Carbon Dioxide 22 (22-30) mmol/L Anion Gap 14 mmol/L BUN 23 H (9-20) mg/dL Creatinine 1.14 (0.66-1.25) mg/dL Est GFR (CKD-EPI)AfAm 76 (>60 ml/min/1.73 sqM) Est GFR (CKD-EPI)NonAf 66 (>60 ml/min/1.73 sqM) Glucose 109 H (74-99) mg/dL Calcium 10.6 H (8.4-10.2) mg/dL Magnesium 1.9 (1.6-2.3) mg/dL Total Bilirubin 0.7 (0.2-1.3) mg/dL AST 30 (17-59) U/L ALT 34 (21-72) U/L Alkaline Phosphatase 27 L (38-126) U/L Troponin I (0.000-0.034) ng/mL Total Protein 8.1 (6.3-8.2) g/dL Albumin 4.8 (3.5-5.0) g/dL TSH 0.175 L (0.465-4.680) mIU/L Free T4 1.60 (0.78-2.19) ng/dL Free T3 pg/mL 3.8 (2.8-5.3) pg/ml 05/25/19 Range/Units 22:40 WBC (3.8-10.6) k/uL RBC (4.30-5.90) m/uL Hgb (13.0-17.5) gm/dL Hct (39.0-53.0) % MCV (80.0-100.0) fL MCH (25.0-35.0) pg MCHC (31.0-37.0) g/dL RDW (11.5-15.5) % Plt Count (150-450) k/uL Neutrophils % (Manual) % Lymphocytes % (Manual) % Monocytes % (Manual) % Eosinophils % (Manual) % Neutrophils # (Manual) (1.3-7.7) k/uL Lymphocytes # (Manual) (1.0-4.8) k/uL Monocytes # (Manual) (0-1.0) k/uL Eosinophils # (Manual) (0-0.7) k/uL Nucleated RBCs (0-0) /100 WBC Manual Slide Review PT (9.0-12.0) sec INR (<1.2) APTT (22.0-30.0) sec Sodium (137-145) mmol/L Potassium (3.5-5.1) mmol/L Chloride (98-107) mmol/L Carbon Dioxide (22-30) mmol/L Anion Gap mmol/L BUN (9-20) mg/dL Creatinine (0.66-1.25) mg/dL Est GFR (CKD-EPI)AfAm (>60 ml/min/1.73 sqM) Est GFR (CKD-EPI)NonAf (>60 ml/min/1.73 sqM) Glucose (74-99) mg/dL Calcium (8.4-10.2) mg/dL Magnesium (1.6-2.3) mg/dL Total Bilirubin (0.2-1.3) mg/dL AST (17-59) U/L ALT (21-72) U/L Alkaline Phosphatase (38-126) U/L Troponin I 0.703 H* (0.000-0.034) ng/mL Total Protein (6.3-8.2) g/dL Albumin (3.5-5.0) g/dL TSH (0.465-4.680) mIU/L Free T4 (0.78-2.19) ng/dL Free T3 pg/mL (2.8-5.3) pg/ml Critical Care Time Critical Care Time: Yes Total Critical Care Time: 33 Disposition Clinical Impression: Atrial fibrillation with RVR, NSTEMI (non-ST elevated myocardial infarction) Disposition: ADMITTED IP TO THIS [facility] Condition: Serious Is patient prescribed a controlled substance at d/c from ED?: No Referrals: Raya Clark MD [Primary Care Provider] - 1-2 days Decision Time: 23:59
[2019-05-25 23:02] LABS: MCH 28.9 pg (25.0-35.0); MCHC 33.3 g/dL (31.0-37.0); MCV 86.8 fL (80.0-100.0); Mean Platelet Volume 7.1; Platelet Count 208 k/uL (150-450); RBC 4.84 m/uL (4.30-5.90); RDW 12.8 % (11.5-15.5); WBC 4.5 k/uL (3.8-10.6)
[2019-05-25 23:11] LABS: Albumin 4.8 g/dL (3.5-5.0); Calcium 10.6 mg/dL (8.4-10.2); Magnesium 1.9 mg/dL (1.6-2.3); Potassium 4.1 mmol/L (3.5-5.1); Total Bilirubin 0.7 mg/dL (0.2-1.3); Total Protein 8.1 g/dL (6.3-8.2)
[2019-05-25 23:12] LABS: Partial Thromboplastin Time 24.2 sec (22.0-30.0); Prothrombin Time 10.5 sec (9.0-12.0)
[2019-05-25] MEDS: DILTIAZEM 125 MG in SODIUM CHLORIDE 0.9% 100 ML IV SCH (23:15)
[2019-05-25 23:27] LABS: T4, Free (Free Thyroxine) 1.6 ng/dL (0.78-2.19)
[2019-05-25 23:41] LABS: Eosinophils # (M) 0.32 k/uL (0-0.7); Lymphocytes # (M) 1.98 k/uL (1.0-4.8); Monocytes # (M) 0.27 k/uL (0-1.0); Neutrophils % (M) 43 %; Nucleated Red Blood Cells 0 /100 WBC (0-0); Total Cells Counted 100
[2019-05-25] MEDS ORDERED: HEPARIN SODIUM,PORCINE 5,000 UNIT/ML 1 ML VIAL IV PRN (23:53)
[2019-05-25] MEDS ORDERED: HEPARIN SODIUM,PORCINE 5,000 UNIT/ML 1 ML VIAL IV ONE (23:53)
[2019-05-25] MEDS ORDERED: NITROGLYCERIN SL TABS 0.4 MG TAB SUBLINGUAL PRN (23:59)
[2019-05-25] MEDS ORDERED: ASPIRIN 81 MG PO STA (23:59)
--- NOTE | 2019-05-26 | XR ---
EXAMINATION TYPE: XR chest 2V DATE OF EXAM: 05/25/2019 COMPARISON: 12/04/2015 HISTORY: Dysrhythmia TECHNIQUE: Frontal and lateral views of the chest are obtained. FINDINGS: There is no heart failure nor confluent pneumonic infiltrate. Costophrenic angles are omayra r. There are chest leads. IMPRESSION: No active cardiopulmonary disease. No change.
[2019-05-26] MEDS: HEPARIN SOD,PORK IN 0.45% NACL 25,000 UNIT in 0.45% NACL 1 250ML.BAG IV SCH (00:30)
[2019-05-26 05:08] LABS: Glucose,Whole Blood 110 mg/dL (75-99)
[2019-05-26] MEDS ORDERED: ACETAMINOPHEN TAB 325 MG TAB PO PRN (05:23)
[2019-05-26] MEDS ORDERED: ALBUTEROL NEBULIZED 2.5 MG/3 ML INHALATION PRN (05:43)
[2019-05-26 06:00] LABS: Basophils % (A) 0 %; Eosinophils # (A) 0.1 k/uL (0-0.7); Eosinophils % (A) 2 %; HCT 40.1 % (39.0-53.0); HGB 13.4 gm/dL (13.0-17.5); Lymphocytes # (A) 1.6 k/uL (1.0-4.8); Lymphocytes % (A) 29 %; MCH 29.1 pg (25.0-35.0); MCHC 33.5 g/dL (31.0-37.0); Mean Platelet Volume 6.6; Monocytes # (A) 0.3 k/uL (0-1.0); Monocytes % (A) 5 %; Neutrophils # (A) 3.3 k/uL (1.3-7.7); Neutrophils % (A) 60 %; Platelet Count 204 k/uL (150-450); RBC 4.61 m/uL (4.30-5.90); RDW 12.9 % (11.5-15.5); WBC 5.5 k/uL (3.8-10.6)
[2019-05-26 06:11] LABS: Cholesterol 167 mg/dL (<200); HDL Cholesterol 27 mg/dL (40-60); LDL Cholesterol,Calculated 97 mg/dL (0-99); Triglycerides 215 mg/dL (<150)
[2019-05-26 06:18] VITALS: BMI 24.4
[2019-05-26] MEDS ORDERED: HEPARIN SODIUM,PORCINE 5,000 UNIT/ML 1 ML VIAL IV STA (08:21)
[2019-05-26] MEDS: GLIMEPIRIDE 1 MG TAB PO SCH (08:30)
[2019-05-26] MEDS: FAMOTIDINE 20 MG TAB PO SCH ×2 (08:34→20:10)
[2019-05-26] MEDS: ASPIRIN 325 MG TAB PO SCH (08:58)
[2019-05-26] MEDS: MAGNESIUM OXIDE 400 MG TAB PO SCH (08:58)
[2019-05-26] MEDS: FENOFIBRATE 160 MG TAB PO SCH (08:58)
[2019-05-26] MEDS: LEVOTHYROXINE 50 MCG TAB PO SCH (08:58)
[2019-05-26 09:00] LABS: Albumin 4.3 g/dL (3.5-5.0); Calcium 9.9 mg/dL (8.4-10.2); Potassium 3.7 mmol/L (3.5-5.1); Total Bilirubin 0.8 mg/dL (0.2-1.3); Total Protein 7.3 g/dL (6.3-8.2)
--- NOTE | 2019-05-26 11:01 | ECHOF ---
Referral Reason:nstemi MEASUREMENTS -------- HEIGHT: 172.7 cm WEIGHT: 73.9 kg BP: 126/75 RVIDd: 2.9 cm (< 3.3) IVSd: 1.3 cm (0.6 - 1.1) LVIDd: 5.0 cm (3.9 - 5.3) LVPWd: 1.4 cm (0.6 - 1.1) IVSs: 1.4 cm LVIDs: 3.4 cm LVPWs: 1.5 cm LA Diam: 4.1 cm (2.7 - 3.8) LAESV Index (A-L): 30.86 ml/m Ao Diam: 3.1 cm (2.0 - 3.7) AV Cusp: 1.3 cm (1.5 - 2.6) LA Diam: 3.9 cm (2.7 - 3.8) MV EXCURSION: 16.312 mm (> 18.000) MV EF SLOPE: 86 mm/s (70 - 150) EPSS: 1.1 cm MV E Rainer: 0.83 m/s MV DecT: 147 ms MV A Rainer: 0.05 m/s MV E/A Ratio: 18.09 RAP: 5.00 mmHg RVSP: 14.67 mmHg FINDINGS -------- Atrial fibrillation. This was a technically adequate study. The left ventricular size is normal. There is mild concentric left ventricular hypertrophy. Overa ll left ventricular systolic function is low-normal with, an EF between 50 - 55 %. Left ventricular fillimg pressure cannot be estimated due to Atrial fibrillation. The right ventricle is normal in size. The left atrium is mildly dilated. LA is midly dilated 29-33ml/m2. The right atrial size is normal. There is mild aortic valve sclerosis. There is mild aortic regurgitation. Mild mitral annular calcification present. Mild mitral regurgitation is present. Mild tricuspid regurgitation present. Right ventricular systolic pressure is normal at < 35 mmHg. There is no evidence of pulmonary hypertension. There is no pulmonic regurgitation present. The aortic root size is normal. Echo free space represents a pericardial fat pad. CONCLUSIONS -------- 1. Atrial fibrillation. 2. This was a technically adequate study. 3. The left ventricular size is normal. 4. There is mild concentric left ventricular hypertrophy. 5. Overall left ventricular systolic function is low-normal with, an EF between 50 - 55 %. 6. Left ventricular fillimg pressure cannot be estimated due to Atrial fibrillation. 7. The right ventricle is normal in size. 8. The left atrium is mildly dilated. 9. LA is midly dilated 29-33ml/m2. 10. The right atrial size is normal. 11. There is mild aortic valve sclerosis. 12. There is mild aortic regurgitation. 13. Mild mitral annular calcification present. 14. Mild mitral regurgitation is present. 15. Mild tricuspid regurgitation present. 16. Right ventricular systolic pressure is normal at < 35 mmHg. 17. There is no evidence of pulmonary hypertension. 18. There is no pulmonic regurgitation present. 19. The aortic root size is normal. 20. Echo free space represents a pericardial fat pad. BROKER IN CHARGE: Nehal Aldana RDCS
[2019-05-26] MEDS ORDERED: METOPROLOL TARTRATE 50 MG TAB PO SCH ×2 (11:15→21:00)
[2019-05-26] MEDS: METOPROLOL TARTRATE 25 MG TAB PO SCH ×2 (11:46→20:11)
[2019-05-26] MEDS ORDERED: PROPAFENONE 150 MG TAB PO ONE (11:53)
[2019-05-26] MEDS ORDERED: HYDROCHLOROTHIAZIDE 25 MG TAB PO SCH (12:00)
--- NOTE | 2019-05-26 12:35 | CONS ---
CONSULTATION CHIEF COMPLAINT: Atrial fibrillation. This is a 69-year-old gentleman with history of [id number] diabetes, hypertension, hypothyroidism and dyslipidemia who was to undergo a colonoscopy and during the prep felt that his blood pressures were elevated. Came to the ER and was found to be in atrial fibrillation. There is no prior history of atrial fibrillation and patient did not have any history of sustained palpitations in fact was in excellent health up until yesterday. At the time of my evaluation, patient remains in A. fib with poorly controlled ventricular rate. He is on Cardizem, which I am going to stop, start him on beta blockers. He is on IV heparin. I am going to start him on Eliquis and an echocardiogram shows that his heart function is normal and does not have any significant structural heart disease. I am going to start him on Rythmol, give him a dose of 300 mg and then put him on 150 t.i.d. If he does not convert to sinus rhythm by tomorrow, we will do a KAYLA and cardioversion. I discussed these issues at length with the patient. He understands and in agreement with the plans. PAST MEDICAL HISTORY: Past medical history is significant for non-insulin diabetes, hypertension, dyslipidemia, hypothyroidism. CURRENT MEDICATIONS: Current medications include albuterol, aspirin, Lipitor 10 q. daily, Pepcid 20 b.i.d., TriCor, Amaryl, HydroDIURIL, Synthroid, Prinivil 10 q. daily, Zestril 10 q. daily, Lopressor 50 daily, and Glucophage. ALLERGIES: Allergic to AVELOX, BANANA, GRASS POLLEN. FAMILY HISTORY: Negative for premature coronary artery disease. SOCIAL HISTORY: Negative for smoking, EtOH abuse or drug abuse. REVIEW OF SYSTEMS: HEENT is unremarkable. CARDIAC: As described above. RESPIRATORY: As described above. GI: Negative. GENITOURINARY: Negative. ALLERGY/IMMUNOLOGY: Negative. SKIN: Negative. MUSCULOSKELETAL: Negative. ENDOCRINE: Negative. DERM: Negative. CONSTITUTIONAL: Negative. ONCOLOGICAL: Negative. Rest of the system review is not relevant. PHYSICAL EXAMINATION: On exam, comfortable at rest. Heart rate is 86 beats per minute, irregularly irregular. Blood pressure is 100/70. Respiratory rate is 18. There is no carotid bruit. Chest is clear to auscultation and percussion. Heart exam reveals first and second heart sounds, irregular rhythm. No murmur. Abdomen is soft. Examination of extremities did not reveal any edema. Peripheral pulses are felt. LABS: Labs show a hemoglobin of 13.4, platelet count is 204. Potassium is 3.7, creatinine is 1.1. The first set of troponin is 0.7. The second set is 0.013. The elevated troponin may be related to mild prerenal azotemia. TSH is low, but free T4 and T3 are within normal limits. The patient had an echo that does not show any wall motion abnormalities. ASSESSMENT: 1. Persistent atrial fibrillation. 2. Elevated troponin of unclear clinical significance. 3. History of hypertension. PLAN: I will try him on Rythmol and see if he converts. If not, we will do KAYLA and cardioversion tomorrow. TIAGO / KULWINDERN: [id number] /
--- NOTE | 2019-05-26 14:26 | P.HPIM ---
History of Present Illness H&P Date: 05/26/19 Chief Complaint: Palpitations This is a 69-year-old male patient of Dr. 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 Patient had a positive: Guarded done at Dr. Clark's office and subsequently was scheduled for colonoscopy with Dr. Rogers. Patient states he started doing the prep for the colonoscopy and he will was checking his blood pressure and it was running high and he was feeling palpitations and felt clammy. He denies any lightheadedness or dizziness. He states his blood pressure usually runs 120/78 but his diastolic number was over 100. He states he has been taking all of his blood pressure medications as directed. He denies any history of atrial fibrillation. He did have a heart catheterization 78 years ago which was done by Dr. Hernandez and patient reports as normal. Patient presented to [facility] emergency center for evaluation. His blood pressure was up to 139/115 with heart rate in the 130s. CBC was unremarkable. Sodium 135, potassium 4.1, BUN 23 and creatinine 1.14, blood sugar 109. EKG was A. fib with RVR and heart rate of 129. TSH 0.175. Troponin 0.703, 0.013, 0.012. Triglycerides 215, cholesterol 167, LDL 97, HDL 27. Chest x-ray showed no acute cardiopulmonary disease. Patient was admitted to ICU as a selective care overflow. He has been seen by cardiology and patient to receive dose of Rythmol to try and convert him. If patient does not convert, plan is to do KAYLA and cardioversion tomorrow. Echocardiogram reveals EF of 50- 55% with mild concentric left ventricular hypertrophy, mild aortic regurgitation, mild mitral regurgitation, mild tricuspid regurgitation, no pulmonary hypertension. Review of Systems Constitutional: Reports fatigue, Reports weakness, Denies anorexia, Denies lethargy, Denies malaise, Denies poor appetite Eyes: denies blurred vision, denies pain Ears, nose, mouth and throat: Denies dysphagia, Denies headache, Denies nasal congestion, Denies nasal discharge, Denies sore throat, Denies vertigo Cardiovascular: Reports palpitations, Reports rapid heart beat, Denies chest pain, Denies decreased exercise tolerance, Denies dyspnea on exertion, Denies edema, Denies leg edema, Denies lightheadedness, Denies shortness of breath, Denies syncope Respiratory: Denies cough, Denies cough with sputum, Denies dyspnea, Denies excessive sputum, Denies hemoptysis, Denies home oxygen, Denies wheezing Gastrointestinal: Denies abdominal pain, Denies diarrhea, Denies loss of appetite, Denies nausea, Denies vomiting Genitourinary: Denies dysuria, Denies urinary retention Musculoskeletal: Denies frequent falls, Denies gait dysfunction, Denies muscle weakness, Denies myalgias Integumentary: Denies pruritus, Denies rash, Denies wounds Neurological: Denies burning pain, Denies confusion, Denies numbness, Denies seizures, Denies weakness Psychiatric: Denies anxiety, Denies depression Endocrine: Denies fatigue, Denies weight change Past Medical History Past Medical History: Asthma, Diabetes Mellitus, GERD/Reflux, Hyperlipidemia, Hypertension, Prostate Disorder, Thyroid Disorder Additional Past Medical History / Comment(s): occ irregular heartbeat, poor vision rt eye- ischemic optic nerve damage r/t HTN medication causing too low of blood pressure, pt states goal b/p per [facility] is 130/80 , + COLOGARD TEST History of Any Multi-Drug Resistant Organisms: None Reported Past Surgical History: Heart Catheterization Additional Past Surgical History / Comment(s): deviated septum repair, CO LONOSCOPY, Past Anesthesia/Blood Transfusion Reactions: No Reported Reaction Past Psychological History: No Psychological Hx Reported Smoking Status: Former smoker Past Alcohol Use History: None Reported Additional Past Alcohol Use History / Comment(s): quit smoking 1976, smoked for 4-5 yrs. He denies any alcohol use, marijuana or illicit drug use. He does not have a CPAP or nebulizer at home. He is and lives at home with his . 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 Past Drug Use History: None Reported - Past Family History Mother Family Medical History: No Reported History Additional Family Medical History / Comment(s): Mother at age 90 from heart failure. Father Additional Family Medical History / Comment(s): Father in his 60s from myocardial infarction. Patient has 1 brother and 1 sister with no major medical problems. Patient has 1 son and 1 daughter with no major medical problems. Medications and Allergies Home Medications Medication Instructions Recorded Confirmed Type Albuterol Sulfate [Ventolin HFA] 2 puff INHALATION RT-Q4H PRN 04/08/14 05/25/19 History Aspirin 81 mg PO DAILY 04/08/14 05/25/19 History Atorvastatin [Lipitor] 10 mg PO HS 04/08/14 05/25/19 History Hydrochlorothiazide [Hydrodiuril] 25 mg PO DAILY@1200 04/08/14 05/25/19 History Metoprolol Tartrate [Lopressor] 50 mg PO HS 04/08/14 05/25/19 History Tamsulosin HCl 0.4 mg PO HS 04/08/14 05/25/19 History metFORMIN HCL [Glucophage] 1,000 mg PO BID 04/08/14 05/25/19 History Fenofibrate Nanocrystallized 145 mg PO DAILY 07/16/17 05/25/19 History [Tricor] Glimepiride [Amaryl] 1 mg PO AC-BRKFST 07/16/17 05/25/19 History Levothyroxine Sodium [Synthroid] 50 mcg PO DAILY 07/16/17 05/25/19 History Famotidine [Pepcid] 20 mg PO BID 05/25/19 05/25/19 History Lisinopril [Prinivil] 10 mg PO HS 05/25/19 05/25/19 History Lisinopril [Zestril] 10 mg PO DAILY@1700 05/25/19 05/25/19 History Magnesium Oxide 400 mg PO DAILY 05/25/19 05/25/19 History Vascepa 1gm 1 cap PO DAILY 05/25/19 05/25/19 History Allergies Allergy/AdvReac Type Severity Reaction Status Date / Time grass pollen Allergy Dyspnea Verified 05/25/19 23:45 moxifloxacin [From Avelox] Allergy lip Verified 05/25/19 23:45 swelling/SOB tree and shrub pollen Allergy Dyspnea Verified 05/25/19 23:45 banana [Banana] AdvReac Swelling Verified 05/25/19 23:45 Physical Exam Vitals: Vital Signs Temp Pulse Pulse Resp BP BP Pulse Ox 05/26/19 12:00 98.3 F 80 16 115/76 97 05/26/19 08:00 98.5 F 86 12 100/70 96 05/26/19 04:00 87 15 126/75 97 05/26/19 02:00 92 16 107/80 96 05/26/19 01:47 98 F 88 18 98 05/26/19 01:00 93 16 123/110 95 05/26/19 00:00 95 29 H 115/87 96 05/25/19 23:20 94 18 146/88 05/25/19 22:50 104 H 18 158/106 100 05/25/19 22:35 137 H 18 139/115 100 05/25/19 22:24 98.1 F 129 H 18 156/101 99 Intake and Output 05/25/19 05/26/19 05/26/19 22:59 06:59 14:59 Intake Total 100 133.978 Balance 100 133.978 Intake: IV 60 .9 20 60 Amount of Fluid Infused ( 100 ml) Intake, IV Titration 73.978 Amount Heparin Sod,Pork in 0.45% 73.978 NaCl 25,000 unit In 0.45 % NaCl 1 250ml.bag @ 12 UNITS/KG/HR 9.525 mls/hr IV .Q24H [facility] Rx#: [id number] Other: # Voids 1 1 # Bowel Movements 1 Weight 79.379 kg 74 kg Gen: This is a 69-year-old male. He is resting in ICU bed and appears to be comfortable and in no acute distress. HEENT: Head is atraumatic, normocephalic. Pupils equal, round. Sclerae is anicteric. NECK: Supple. No JVD. No lymphadenopathy. No thyromegaly. Goiter slightly enlarged to the right side. LUNGS: Clear to auscultation. No wheezes or rhonchi. No intercostal retractions. HEART: Irregularly irregular rate and rhythm. No murmur. ABDOMEN: Soft. Bowel sounds are present. No masses. No tenderness. EXTREMITIES: No pedal edema. No calf tenderness. Dorsalis pedis palpable. NEUROLOGICAL: Patient is awake, alert and oriented x3. Cranial nerves 2 through 12 are grossly intact. Results CBC & Chem 7: 05/26/19 05:15 05/26/19 05:15 Labs: Abnormal Lab Results - Last 24 Hours (Table) 05/25/19 05/25/19 05/26/19 Range/Units 22:40 22:40 05:06 APTT (22.0-30.0) sec Sodium 135 L (137-145) mmol/L Carbon Dioxide (22-30) mmol/L BUN 23 H (9-20) mg/dL Glucose 109 H (74-99) mg/dL POC Glucose (mg/dL) 110 H (75-99) mg/dL Calcium 10.6 H (8.4-10.2) mg/dL Alkaline Phosphatase 27 L (38-126) U/L Troponin I 0.703 H* (0.000-0.034) ng/mL Triglycerides (<150) mg/dL HDL Cholesterol (40-60) mg/dL TSH 0.175 L (0.465-4.680) mIU/L 05/26/19 05/26/19 05/26/19 Range/Units 05:15 05:15 05:15 APTT 36.7 H (22.0-30.0) sec Sodium 136 L (137-145) mmol/L Carbon Dioxide 21 L (22-30) mmol/L BUN 22 H (9-20) mg/dL Glucose 113 H (74-99) mg/dL POC Glucose (mg/dL) (75-99) mg/dL Calcium (8.4-10.2) mg/dL Alkaline Phosphatase 27 L (38-126) U/L Troponin I (0.000-0.034) ng/mL Triglycerides 215 H (<150) mg/dL HDL Cholesterol 27 L (40-60) mg/dL TSH (0.465-4.680) mIU/L Thrombosis Risk Factor Assmnt - DVT/VTE Prophylaxis DVT/VTE Prophylaxis: Pharmacologic Prophylaxis ordered - Choose All That Apply Any of the Below Risk Factors Present?: No Each Risk Factor Represents 2 Points: Age 61-74 years Other congenital or acquired thrombophilia - If yes, enter type in comment: No Thrombosis Risk Factor Assessment Total Risk Factor Score: 2 Thrombosis Risk Factor Assessment Level: Low Risk Assessment and Plan Plan: 1. New onset paroxysmal atrial fibrillation presented with A. fib RVR. Cardiology consult appreciated. Patient has been on Cardizem drip and heparin drip. Continue Lopressor 25 mg twice daily, Rythmol 150 mg 3 times daily. If patient does not convert, KAYLA and cardioversion tomorrow. 2. Elevation and initial troponin most likely secondary to A. fib with RVR. Cardiology does not plan for any intervention for this. 3. Hypertension. Continue lisinopril 10 mg at bedtime, Lopressor 25 mg twice daily, Rythmol 150 mg 3 times daily. 4. Hyperlipidemia. Continue Lipitor 10 mg at bedtime, fenofibrate 160 mg daily . 5. Diabetes mellitus type 2. Continue glimepiride 1 mg with breakfast, NovoLog scale before meals and at bedtime 6. Hypothyroidism. Continue levothyroxine 50 g daily 7. Benign prostatic hypertrophy. Continue Flomax 0.4 mg at bedtime and monitor for urinary retention. 8. History of ischemic optic neuropathy affecting vision in the right eye. 9. Mild intermittent asthma, stable without exacerbation. Albuterol as needed. 10. Gastroesophageal reflux disease. Pepcid. 11. DVT prophylaxis. Heparin drip. Patient will be admitted to the hospital for a minimum of 2 night stay. Discharge plan: Return home Impression and plan of care have been directed as dictated by the signing physician. Elrinda Morgan nurse practitioner acting as scribe for signing physician.
[2019-05-26] MEDS ORDERED: LISINOPRIL 10 MG TAB PO SCH (17:00)
[2019-05-26 17:14] LABS: Glucose,Whole Blood 113 mg/dL (75-99)
[2019-05-26] MEDS: INSULIN ASPART (NovoLOG) 100 UNIT/ML VIAL SQ SCH ×2 (17:20→21:12)
[2019-05-26] MEDS: PROPAFENONE 150 MG TAB PO SCH ×2 (17:35→20:10)
[2019-05-26] MEDS: ATORVASTATIN 10 MG TAB PO SCH (20:10)
[2019-05-26] MEDS: TAMSULOSIN 0.4 MG CAP.ER.24H PO SCH (20:10)
[2019-05-26] MEDS: LISINOPRIL 5 MG TAB PO SCH (20:11)
[2019-05-26 20:24] LABS: Glucose,Whole Blood 126 mg/dL (75-99)
[2019-05-27] MEDS: DILTIAZEM 125 MG in SODIUM CHLORIDE 0.9% 100 ML IV SCH (03:32)
[2019-05-27] MEDS: HEPARIN SOD,PORK IN 0.45% NACL 25,000 UNIT in 0.45% NACL 1 250ML.BAG IV SCH (06:13)
[2019-05-27] MEDS: LEVOTHYROXINE 50 MCG TAB PO SCH (06:13)
[2019-05-27] MEDS: GLIMEPIRIDE 1 MG TAB PO SCH (06:14)
[2019-05-27 06:24] LABS: Glucose,Whole Blood 116 mg/dL (75-99)
[2019-05-27] MEDS: INSULIN ASPART (NovoLOG) 100 UNIT/ML VIAL SQ SCH ×4 (06:32→21:26)
[2019-05-27 07:17] LABS: Basophils % (A) 0 %; Eosinophils # (A) 0.1 k/uL (0-0.7); Eosinophils % (A) 3 %; HCT 38.3 % (39.0-53.0); HGB 12.8 gm/dL (13.0-17.5); Lymphocytes # (A) 1.4 k/uL (1.0-4.8); Lymphocytes % (A) 37 %; MCH 28.9 pg (25.0-35.0); MCHC 33.5 g/dL (31.0-37.0); MCV 86.4 fL (80.0-100.0); Mean Platelet Volume 6.8; Monocytes # (A) 0.3 k/uL (0-1.0); Monocytes % (A) 8 %; Neutrophils # (A) 1.8 k/uL (1.3-7.7); Neutrophils % (A) 47 %; Platelet Count 174 k/uL (150-450); RBC 4.43 m/uL (4.30-5.90); RDW 12.7 % (11.5-15.5); WBC 3.7 k/uL (3.8-10.6)
[2019-05-27] MEDS: FAMOTIDINE 20 MG TAB PO SCH ×2 (09:12→20:40)
[2019-05-27] MEDS: METOPROLOL TARTRATE 25 MG TAB PO SCH ×2 (09:12→20:39)
[2019-05-27] MEDS: FENOFIBRATE 160 MG TAB PO SCH (09:12)
[2019-05-27] MEDS: ASPIRIN 325 MG TAB PO SCH (09:12)
[2019-05-27] MEDS: MAGNESIUM OXIDE 400 MG TAB PO SCH (09:12)
[2019-05-27] MEDS ORDERED: SODIUM CHLORIDE 0.9% 500 ML 500 ML IV ONE (10:23)
[2019-05-27] MEDS: PROPAFENONE 150 MG TAB PO SCH ×3 (10:31→20:40)
[2019-05-27] MEDS ORDERED: PROPOFOL 10 MG/ML 20 ML VIAL IV ONE (10:48)
--- NOTE | 2019-05-27 11:12 | P.PCN ---
Date of Procedure: 05/27/19 Preoperative Diagnosis: Atrial fibrillation with RVR Postoperative Diagnosis: Successful cardioversion to sinus rhythm Procedure(s) Performed: KAYLA followed by cardioversion Description of Procedure: The patient was brought to the recovery room in a fasting state. Patient was prepped and draped in the usual fashion. The department of anesthesia given IV sedation with propofol. A lubricated Omni probe was introduced in the or opharynx and was advanced into the esophagus. Multiple views were obtained. Saline contrast bubble injection of the performed. Color, pulsed and Doppler study was performed Findings: No clot in the left atrial appendage. Left atrial enlargement. Normal valvar function without any significant stenosis or regurgitation. No evidence of PFO. Preserved LV function. Final impression: No clot in the left atrial appendage. Cardioversion: A single shock of 200 J was applied with the anterior-posterior paddles. Patient converted to sinus rhythm. No immediate complications. Final impression: #1. Successful cardioversion to sinus rhythm.
[2019-05-27] MEDS ORDERED: SODIUM CHLORIDE 0.9% 1,000 ML IV SCH (11:15)
[2019-05-27 11:25] VITALS: RESP 16
[2019-05-27 12:27] LABS: Glucose,Whole Blood 122 mg/dL (75-99)
--- NOTE | 2019-05-27 14:33 | P.PN ---
Subjective Progress Note Date: 05/27/19 This is a 69-year-old male patient of Dr. 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 Patient had a positive: Guarded done at Dr. Clark's office and subsequently was scheduled for colonoscopy with Dr. Rogers. Patient states he started doing the prep for the colonoscopy and he will was checking his blood pressure and it was running high and he was feeling palpitations and felt clammy. He denies any lightheadedness or dizziness. He states his blood pressure usually runs 120/78 but his diastolic number was over 100. He states he has been taking all of his blood pressure medications as directed. He denies any history of atrial fibrillation. He did have a heart catheterization 78 years ago which was done by Dr. Hernandez and patient reports as normal. Patient presented to [facility] emergency center for evaluation. His blood pressure was up to 139/115 with heart rate in the 130s. CBC was unremarkable. Sodium 135, potassium 4.1, BUN 23 and creatinine 1.14, blood sugar 109. EKG was A. fib with RVR and heart rate of 129. TSH 0.175. Troponin 0.703, 0.013, 0.012. Triglycerides 215, cholesterol 167, LDL 97, HDL 27. Chest x-ray showed no acute cardiopulmonary disease. Patient was admitted to ICU as a selective care overflow. He has been seen by cardiology and patient to receive dose of Rythmol to try and convert him. If patient does not convert, plan is to do KAYLA and cardioversion tomorrow. Echocardiogram reveals EF of 50-55% with mild concentric left ventricular hypertrophy, mild aortic regurgitation, mild mitral regurgitation, mild tricuspid regurgitation, no pulmonary hypertension. 05/27: The patient was seen prior to procedure. He denies any new complaints. He remained in atrial fibrillation. He denies any chest pain or shortness of breath. Patient underwent KAYLA followed by electrocardioversion today with Dr. Hernandez with conversion to sinus rhythm. 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 Patient has been advised to hold on colonoscopy for 4 weeks. Anticipate discharge home tomorrow. Review of Systems Constitutional: Reports fatigue, Reports weakness, Denies anorexia, Denies lethargy, Denies malaise, Denies poor appetite Eyes: denies blurred vision, denies pain Ears, nose, mouth and throat: Denies dysphagia, Denies headache, Denies nasal congestion, Denies nasal discharge, Denies sore throat, Denies vertigo Cardiovascular: Denies palpitations, Denies chest pain, Denies decreased exercise tolerance, Denies dyspnea on exertion, Denies edema, Denies leg edema, Denies lightheadedness, Denies shortness of breath, Denies syncope Respiratory: Denies cough, Denies cough with sputum, Denies dyspnea, Denies excessive sputum, Denies hemoptysis, Denies home oxygen, Denies wheezing Gastrointestinal: Denies abdominal pain, Denies diarrhea, Denies loss of appetite, Denies nausea, Denies vomiting Genitourinary: Denies dysuria, Denies urinary retention Musculoskeletal: Denies frequent falls, Denies gait dysfunction, Denies muscle weakness, Denies myalgias Integumentary: Denies pruritus, Denies rash, Denies wounds Neurological: Denies burning pain, Denies confusion, Denies numbness, Denies seizures, Denies weakness Psychiatric: Denies anxiety, Denies depression Endocrine: Denies fatigue, Denies weight change Objective - Vital Signs Vital signs: Vital Signs Temp 97.4 F L 05/27/19 08:00 Pulse 68 05/27/19 11:38 Resp 16 05/27/19 11:38 BP 108/68 05/27/19 11:38 Pulse Ox 97 05/27/19 11:38 Intake & Output 05/26/19 05/27/19 05/27/19 18:59 06:59 18:59 Intake Total 253.978 176.022 0 Balance 253.978 176.022 0 Weight 75.3 kg Intake: IV 180 0 .9 20 180 Intake, IV Titration 73.978 176.022 Amount Heparin Sod,Pork in 0.45% 73.978 176.022 NaCl 25,000 unit In 0.45 % NaCl 1 250ml.bag @ 12 UNITS/KG/HR 9.525 mls/hr IV .Q24H [facility] Rx#: [id number] Other: # Voids 1 3 - Exam Gen: This is a 69-year-old male. He is seen on the cardiac stepdown unit. He is resting in bed and appears to be comfortable and in no acute distress. HEENT: Head is atraumatic, normocephalic. Pupils equal, round. Sclerae is anicteric. NECK: Supple. No JVD. No lymphadenopathy. No thyromegaly. Goiter slightly enlarged to the right side. LUNGS: Clear to auscultation. No wheezes or rhonchi. No intercostal retractions. HEART: Irregularly irregular rate and rhythm. No murmur. ABDOMEN: Soft. Bowel sounds are present. No masses. No tenderness. EXTREMITIES: No pedal edema. No calf tenderness. Dorsalis pedis palpable. NEUROLOGICAL: Patient is awake, alert and oriented x3. Cranial nerves 2 through 12 are grossly intact. - Labs CBC & Chem 7: 05/27/19 06:30 05/26/19 05:15 Labs: Abnormal Lab Results - Last 24 Hours (Table) 05/26/19 05/26/19 05/26/19 Range/Units 14:40 17:12 20:22 WBC (3.8-10.6) k/uL Hgb (13.0-17.5) gm/dL Hct (39.0-53.0) % APTT 68.3 H (22.0-30.0) sec POC Glucose (mg/dL) 113 H 126 H (75-99) mg/dL 05/27/19 05/27/19 05/27/19 Range/Units 06:22 06:30 06:30 WBC 3.7 L (3.8-10.6) k/uL Hgb 12.8 L (13.0-17.5) gm/dL Hct 38.3 L (39.0-53.0) % APTT 59.9 H (22.0-30.0) sec POC Glucose (mg/dL) 116 H (75-99) mg/dL Assessment and Plan Plan: 1. New onset paroxysmal atrial fibrillation presented with A. fib RVR. Cardiology consult appreciated. Patient has been on Cardizem drip and heparin drip. Continue Lopressor 25 mg twice daily, Rythmol 150 mg 3 times daily. If patient does not convert, KAYLA and cardioversion completed this afternoon was successful. Patient to start eliquis after procedure. 2. Elevation and initial troponin most likely secondary to A. fib with RVR. 3. Hypertension. Continue lisinopril 10 mg at bedtime, Lopressor 25 mg twice daily, Rythmol 150 mg 3 times daily. 4. Hyperlipidemia. Continue Lipitor 10 mg at bedtime, fenofibrate 160 mg daily. 5. Diabetes mellitus type 2. Continue glimepiride 1 mg with breakfast, NovoLog scale before meals and at bedtime 6. Hypothyroidism. Continue levothyroxine 50 g daily 7. Benign prostatic hypertrophy. Continue Flomax 0.4 mg at bedtime and monitor for urinary retention. 8. History of ischemic optic neuropathy affecting vision in the right eye. 9. Mild intermittent asthma, stable without exacerbation. Albuterol as needed. 10. Gastroesophageal reflux disease. Pepcid. 11. DVT prophylaxis. Heparin drip and transitioned to eliquis. Discharge plan: Return home on Thursday Impression and plan of care have been directed as dictated by the signing physician. Erlinda Morgan nurse practitioner acting as scribe for signing physician.
[2019-05-27 17:30] LABS: Glucose,Whole Blood 105 mg/dL (75-99)
[2019-05-27] MEDS: TAMSULOSIN 0.4 MG CAP.ER.24H PO SCH (20:39)
[2019-05-27] MEDS: APIXABAN 5 MG TAB PO SCH (20:39)
[2019-05-27] MEDS: LISINOPRIL 5 MG TAB PO SCH (20:40)
[2019-05-27] MEDS: ATORVASTATIN 10 MG TAB PO SCH (20:40)
[2019-05-27 20:44] LABS: Glucose,Whole Blood 134 mg/dL (75-99)
[2019-05-28] MEDS: LEVOTHYROXINE 50 MCG TAB PO SCH (06:24)
[2019-05-28] MEDS: GLIMEPIRIDE 1 MG TAB PO SCH (06:24)
[2019-05-28 06:28] LABS: Glucose,Whole Blood 97 mg/dL (75-99)
[2019-05-28 06:50] LABS: Basophils % (A) 0 %; Eosinophils # (A) 0.2 k/uL (0-0.7); Eosinophils % (A) 4 %; HCT 36.6 % (39.0-53.0); HGB 12.2 gm/dL (13.0-17.5); Lymphocytes # (A) 1.4 k/uL (1.0-4.8); Lymphocytes % (A) 37 %; MCH 28.9 pg (25.0-35.0); MCHC 33.3 g/dL (31.0-37.0); MCV 86.8 fL (80.0-100.0); Mean Platelet Volume 7.5; Monocytes # (A) 0.3 k/uL (0-1.0); Monocytes % (A) 8 %; Neutrophils # (A) 1.8 k/uL (1.3-7.7); Neutrophils % (A) 47 %; Platelet Count 173 k/uL (150-450); RBC 4.21 m/uL (4.30-5.90); WBC 3.8 k/uL (3.8-10.6)
[2019-05-28] MEDS: INSULIN ASPART (NovoLOG) 100 UNIT/ML VIAL SQ SCH (06:50)
[2019-05-28] MEDS: PROPAFENONE 150 MG TAB PO SCH (08:36)
[2019-05-28] MEDS: FAMOTIDINE 20 MG TAB PO SCH (08:36)
[2019-05-28] MEDS: METOPROLOL TARTRATE 25 MG TAB PO SCH (08:36)
[2019-05-28] MEDS: APIXABAN 5 MG TAB PO SCH (08:36)
[2019-05-28] MEDS: ASPIRIN 325 MG TAB PO SCH (08:36)
[2019-05-28] MEDS: MAGNESIUM OXIDE 400 MG TAB PO SCH (08:36)
[2019-05-28] MEDS: FENOFIBRATE 160 MG TAB PO SCH (08:36)
[2019-05-28 09:22] VITALS: BP 106/58; PULSE 80; TEMP 97.5
--- NOTE | 2019-05-28 10:07 | P.DS ---
Providers Date of admission: 05/26/19 00:01 Expected date of discharge: 05/28/19 Attending physician: Ray Whtie Consults: 05/25/19 23:59 Consult Physician Urgent Consulting Provider: Orlando Mazariegos Consult Reason/Comments: nstemi, a fib w rvr Do you want consulting provider notified?: Already Contacted Primary care physician: Raya Clark [facility] Course: This is a 69-year-old male patient of Dr. 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 Patient had a positive: Guarded done at Dr. Clark's office and subsequently was scheduled for colonoscopy with Dr. Rogers. Patient states he started doing the prep for the colonoscopy and he will was checking his blood pressure and it was running high and he was feeling palpitations and felt clammy. He denies any lightheadedness or dizziness. He states his blood pressure usually runs 120/78 but his diastolic number was over 100. He states he has been taking all of his blood pressure medications as directed. He denies any history of atrial fibrillation. He did have a heart catheterization 78 years ago which was done by Dr. Hernandez and patient reports as normal. Patient presented to [facility] emergency center for evaluation. His blood pressure was up to 139/115 with heart rate in the 130s. CBC was unremarkable. Sodium 135, potassium 4.1, BUN 23 and creatinine 1.14, blood sugar 109. EKG was A. fib with RVR and heart rate of 129. TSH 0.175. Troponin 0.703, 0.013, 0.012. Triglycerides 215, cholesterol 167, LDL 97, HDL 27. Chest x-ray showed no acute cardiopulmonary disease. Patient was admitted to ICU as a selective care overflow. He has been seen by cardiology and patient to receive dose of Rythmol to try and convert him. If patient does not convert, plan is to do KAYLA and cardioversion tomorrow. Echocardiogram reveals EF of 50- 55% with mild concentric left ventricular hypertrophy, mild aortic regurgitation, mild mitral regurgitation, mild tricuspid regurgitation, no pulmonary hypertension. 05/27: The patient was seen prior to procedure. He denies any new complaints. He remained in atrial fibrillation. He denies any chest pain or shortness of breath. Patient underwent KAYLA followed by electrocardioversion today with Dr. Hernandez with conversion to sinus rhythm. 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 Patient has been advised to hold on colonoscopy for 4 weeks. Anticipate discharge home tomorrow. Discharge diagnoses: 1. Atrial fibrillation with RVR. 2. Elevated troponin secondary to A.Fib with RVR. 3. Hypertension and hypertensive cardiovascular disease. 4. Hyperlipidemia. 5. Diabetes mellitus type 2. 6. Asthma. 7. Hypothyroidism. 8. Ischemic optic neuropathy on the right side. 9. BPH. 10. Positive cologuard testing( hold off colonoscopy till after 4 weeks). 11. Post DC cardioversion. Patient Condition at Discharge: Serious Plan - Discharge Summary Discharge Rx Participant: Yes New Discharge Prescriptions: No Action Metoprolol Tartrate [Lopressor] 50 mg PO HS Hydrochlorothiazide [Hydrodiuril] 25 mg PO DAILY@1200 Atorvastatin [Lipitor] 10 mg PO HS Aspirin 81 mg PO DAILY Albuterol Sulfate [Ventolin HFA] 2 puff INHALATION RT-Q4H PRN PRN Reason: Shortness Of Breath metFORMIN HCL [Glucophage] 1,000 mg PO BID Tamsulosin HCl 0.4 mg PO HS Fenofibrate Nanocrystallized [Tricor] 145 mg PO DAILY Glimepiride [Amaryl] 1 mg PO AC-BRKFST Levothyroxine Sodium [Synthroid] 50 mcg PO DAILY Lisinopril [Zestril] 10 mg PO DAILY@1700 Magnesium Oxide 400 mg PO DAILY Famotidine [Pepcid] 20 mg PO BID Vascepa 1gm 1 cap PO DAILY Lisinopril [Prinivil] 10 mg PO HS Discharge Medication List Albuterol Sulfate [Ventolin HFA] 2 puff INHALATION RT-Q4H PRN 04/08/14 [History] Aspirin 81 mg PO DAILY 04/08/14 [History] Atorvastatin [Lipitor] 10 mg PO HS 04/08/14 [History] Hydrochlorothiazide [Hydrodiuril] 25 mg PO DAILY@1200 04/08/14 [History] Metoprolol Tartrate [Lopressor] 50 mg PO HS 04/08/14 [History] Tamsulosin HCl 0.4 mg PO HS 04/08/14 [History] metFORMIN HCL [Glucophage] 1,000 mg PO BID 04/08/14 [History] Fenofibrate Nanocrystallized [Tricor] 145 mg PO DAILY 07/16/17 [History] Glimepiride [Amaryl] 1 mg PO AC-BRKFST 07/16/17 [History] Levothyroxine Sodium [Synthroid] 50 mcg PO DAILY 07/16/17 [History] Famotidine [Pepcid] 20 mg PO BID 05/25/19 [History] Lisinopril [Prinivil] 10 mg PO HS 05/25/19 [History] Lisinopril [Zestril] 10 mg PO DAILY@1700 05/25/19 [History] Magnesium Oxide 400 mg PO DAILY 05/25/19 [History] Vascepa 1gm 1 cap PO DAILY 05/25/19 [History] Follow up Appointment(s)/Referral(s): Raya Clark MD [Primary Care Provider] - 1-2 days (Office will call with follow up appointment. ) Padma Hernandez MD [STAFF PHYSICIAN] - 06/06/19 4:15 pm (At [facility]. ) Patient Instructions/Handouts: A-fib (Atrial Fibrillation) (DC), Safe Use of Anticoagulants (DC)
--- NOTE | 2019-05-28 14:17 | PN ---
PROGRESS NOTE Vito is a 69-year-old gentleman that is admitted to hospital with new onset atrial fibrillation. Underwent KAYLA cardioversion by Dr. Hernandez yesterday, converted to sinus rhythm and remains in sinus rhythm. At the time of my evaluation this morning he is comfortable at rest. Vital signs are stable. There is no jugular venous distention. Chest is clear to auscultation. Heart exam reveals first and second heart sounds. No gallop. Exam of extremities did not reveal any edema. Peripheral pulses are felt. LABS: Show a hemoglobin of 12.2, platelet count is 173. MEDICATIONS: At the time of discharge include Eliquis 5 b.i.d. and Rythmol 150 t.i.d. ASSESSMENT: Persistent atrial fibrillation status post cardioversion. PLAN: Patient is doing well. He will be discharged home on current medications including anticoagulant and rhythm suppressive therapy. He will follow up with Dr. Hernandez in the office. MMODL / IJN: [id number] /
== END 2019-05-28 11:40 | disposition home or self-care (01) | DRG 310 ==
LOC: EC 22:22 → 3SCARD 05-26 00:01 → 2SICU 05-26 04:02 → 3SCARD 05-26 17:33
PROVIDERS: ADMIT Internal Medicine Geriatric Medicine; ATTEND Internal Medicine Geriatric Medicine
PROC: 5A2204Z Restoration of Cardiac Rhythm, Single (ICD-10-PCS; principal; 2019-05-27 12:30)
PROC: B246ZZ4 Ultrasonography of Right and Left Heart, Transesophageal (ICD-10-PCS; principal; 2019-05-27 12:30)
DX: I48.19 Other persistent atrial fibrillation (principal); K21.9 Gastro-esophageal reflux disease without esophagitis; E11.9 Type 2 diabetes mellitus without complications; E03.9 Hypothyroidism, unspecified; E78.5 Hyperlipidemia, unspecified; H47.019 Ischemic optic neuropathy, unspecified eye; N40.0 Benign prostatic hyperplasia without lower urinary tract symptoms; I08.3 Combined rheumatic disorders of mitral, aortic and tricuspid valves; H47.011 Ischemic optic neuropathy, right eye; E04.9 Nontoxic goiter, unspecified; I11.9 Hypertensive heart disease without heart failure; J45.20 Mild intermittent asthma, uncomplicated; Z79.899 Other long term (current) drug therapy; Z79.890 Hormone replacement therapy; Z79.84 Long term (current) use of oral hypoglycemic drugs; Z79.82 Long term (current) use of aspirin; Z88.1 Allergy status to other antibiotic agents; Z91.018 Allergy to other foods; Z91.09 Other allergy status, other than to drugs and biological substances; Z98.890 Other specified postprocedural states; Z87.891 Personal history of nicotine dependence; Z82.49 Family history of ischemic heart disease and other diseases of the circulatory system
CPT/HCPCS: 36415; 71046; 80053; 80061; 83735; 84439; 84443; 84481; 84484; 85025; 85610; 85730; 92960; 93005; 93306; 93312; 93325; 96365; 96366; 96368; 96376; 99285

== ENCOUNTER 2019-06-09 23:23 | Emergency (ER) | payer MEDICARE, OTHER ==
[2019-06-09 23:32] VITALS: TEMP 98.7
[2019-06-09] MEDS ORDERED: cloNIDine HCL 0.2 MG TAB PO STA (23:42)
--- NOTE | 2019-06-09 23:50 | ED ---
Recheck HPI - General Chief Complaint: Recheck/Abnormal Lab/Rx Stated Complaint: High Blood Pressure Time Seen by Provider: 06/09/19 23:35 Source: patient, RN notes reviewed, old records reviewed Mode of arrival: ambulatory Limitations: no limitations - History of Present Illness Initial Comments: This is a 69-year-old male to the ER for evaluation presents today for evaluation of elevated blood pressure is significantly anxious currently. He has recent significant hospitalization positive for new onset That atrial fibrillation. Patient states his heart rate feels normal he feels fine no nausea vomiting chest pain shortness breath or headache. Patient takes his blood pressure very often up to 3 times a day as well as states his blood pressure medications liberally he sometimes takes some sometimes it is not appendicitis blood pressure dependent all he feels depressed was doing or where he is. Patient again at this time denies complaints no headache chest pain shortness of breath. Patient admits to some anxiety and admits to anxiety regarding his blood pressure being elevated tonight. Patient did take his blood pressure medications just prior to coming to the ER about an hour prior MD Complaint: other (Elevated blood pressure) -: hour(s) Returns Today for: other (Elevated blood pressure) Symptoms Since Prior Visit: no new symptoms (Patient is asymptomatic) Context: ran out of medication (Patient takes medications very low blood) Associated Symptoms: none Treatments Prior to Arrival: other medications (Patient took both lisinopril and metoprolol prior to arrival) - Related Data Home Medications Medication Instructions Recorded Confirmed Albuterol Sulfate [Ventolin HFA] 2 puff INHALATION RT-Q4H PRN 04/08/14 05/25/19 Aspirin 81 mg PO DAILY 04/08/14 05/25/19 Atorvastatin [Lipitor] 10 mg PO HS 04/08/14 05/25/19 Hydrochlorothiazide [Hydrodiuril] 25 mg PO DAILY@1200 04/08/14 05/25/19 Tamsulosin HCl 0.4 mg PO HS 04/08/14 05/25/19 metFORMIN HCL [Glucophage] 1,000 mg PO BID 04/08/14 05/25/19 Fenofibrate Nanocrystallized 145 mg PO DAILY 07/16/17 05/25/19 [Tricor] Glimepiride [Amaryl] 1 mg PO AC-BRKFST 07/16/17 05/25/19 Levothyroxine Sodium [Synthroid] 50 mcg PO DAILY 07/16/17 05/25/19 Famotidine [Pepcid] 20 mg PO BID 05/25/19 05/25/19 Lisinopril [Prinivil] 10 mg PO HS 05/25/19 05/25/19 Lisinopril [Zestril] 10 mg PO DAILY@1700 05/25/19 05/25/19 Magnesium Oxide 400 mg PO DAILY 05/25/19 05/25/19 Vascepa 1gm 1 cap PO DAILY 05/25/19 05/25/19 Previous Rx's Medication Instructions Recorded Apixaban [Eliquis] 5 mg PO BID #60 tab 05/28/19 Metoprolol Tartrate [Lopressor] 25 mg PO BID #60 tab 05/28/19 Propafenone [Rythmol] 150 mg PO TID #90 tab 05/28/19 Allergies Allergy/AdvReac Type Severity Reaction Status Date / Time grass pollen Allergy Dyspnea Verified 06/09/19 23:32 moxifloxacin [From Avelox] Allergy lip Verified 06/09/19 23:32 swelling/SOB tree and shrub pollen Allergy Dyspnea Verified 06/09/19 23:32 banana [Banana] AdvReac Swelling Verified 06/09/19 23:32 Review of Systems ROS Statement: Those systems with pertinent positive or pertinent negative responses have been documented in the HPI. ROS Other: All systems not noted in ROS Statement are negative. 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 causing too low of blood pressure, pt states goal b/p per [facility] is 130/80 , + COLOGARD TEST History of Any Multi-Drug Resistant Organisms: None Reported Past Surgical History: Heart Catheterization Additional Past Surgical History / Comment(s): deviated septum repair, COLONOSCOPY, Past Anesthesia/Blood Transfusion Reactions: No Reported Reaction Past Psychological History: No Psychological Hx Reported Smoking Status: Former smoker Past Alcohol Use History: None Reported Past Drug Use History: None Reported - Past Family History Mother Family Medical History: No Reported History Additional Family Medical History / Comment(s): Mother at age 90 from heart failure. Father Additional Family Medical History / Comment(s): Father in his 60s from myocardial infarction. Patient has 1 brother and 1 sister with no major medical problems. Patient has 1 son and 1 daughter with no major medical problems. General Exam Limitations: no limitations General appearance: alert, in no apparent distress, anxious Head exam: Present: atraumatic, normocephalic, normal inspection Eye exam: Present: normal appearance, PERRL, EOMI. Absent: scleral icterus, conjunctival injection, periorbital swelling ENT exam: Present: normal exam, mucous membranes moist Neck exam: Present: normal inspection. Absent: tenderness, meningismus, lymphadenopathy Respiratory exam: Present: normal lung sounds bilaterally. Absent: respiratory distress, wheezes, rales, rhonchi, stridor Cardiovascular Exam: Present: regular rate, normal rhythm, normal heart sounds. Absent: systolic murmur, diastolic murmur, rubs, gallop, clicks GI/Abdominal exam: Present: soft, normal bowel sounds. Absent: distended, tenderness, guarding, rebound, rigid Extremities exam: Present: normal inspection, full ROM, normal capillary refill. Absent: tenderness, pedal edema, joint swelling, calf tenderness Back exam: Present: normal inspection Neurological exam: Present: alert, oriented X3, CN II-XII intact Psychiatric exam: Present: normal affect, normal mood Skin exam: Present: warm, dry, intact, normal color. Absent: rash Course Vital Signs 06/09/19 06/09/19 06/10/19 23:30 23:52 00:39 Temperature 98.7 F Pulse Rate 79 66 Respiratory 18 16 Rate Blood Pressure 171/98 154/93 156/94 O2 Sat by Pulse 98 98 Oximetry 06/10/19 00:40 Temperature 98.7 F Pulse Rate 66 Respiratory 16 Rate Blood Pressure 156/94 O2 Sat by Pulse 98 Oximetry - Reevaluation(s) Reevaluation #1: 06/09/19 23:49 Medical records reviewed Reevaluation #2: 06/09/19 23:49 Blood pressure markedly improved Medical Decision Making - Medical Decision Making 69 male the ER for evaluation of elevated blood pressure. At this time patient has improved blood pressure here in the ER EKG is normal sinus rhythm patient can be discharged home - EKG Data -: EKG Interpreted by Me (EKG shows sinus rhythm rate of 78, NC 184, QRS 112, QTc 394) Disposition Clinical Impression: Hypertension Disposition: HOME SELF-CARE Condition: Good Instructions (If sedation given, give patient instructions): Hypertension (ED) Is patient prescribed a controlled substance at d/c from ED?: No Referrals: Raya Clark MD [Primary Care Provider] - 1-2 days
[2019-06-10 00:40] VITALS: BP 156/94; PULSE 66; RESP 16
== END 2019-06-10 00:45 | disposition home or self-care (01) ==
LOC: EC 23:23
DX: I10 Essential (primary) hypertension (principal); F41.9 Anxiety disorder, unspecified; I48.91 Unspecified atrial fibrillation; J45.909 Unspecified asthma, uncomplicated; E11.9 Type 2 diabetes mellitus without complications; K21.9 Gastro-esophageal reflux disease without esophagitis; E78.5 Hyperlipidemia, unspecified; N42.9 Disorder of prostate, unspecified; E07.9 Disorder of thyroid, unspecified; Z95.818 Presence of other cardiac implants and grafts; Z87.891 Personal history of nicotine dependence; Z82.49 Family history of ischemic heart disease and other diseases of the circulatory system; Z79.82 Long term (current) use of aspirin; Z79.84 Long term (current) use of oral hypoglycemic drugs; Z79.890 Hormone replacement therapy; Z79.899 Other long term (current) drug therapy; Z91.048 Other nonmedicinal substance allergy status; Z88.1 Allergy status to other antibiotic agents; Z91.018 Allergy to other foods
CPT/HCPCS: 93005; 99284

== ENCOUNTER 2019-07-10 09:50 | Inpatient (IN) | payer MEDICARE, OTHER ==
[2019-07-10] MEDS ORDERED: SODIUM CHLORIDE 0.9% 1,000 ML IV STA (10:50)
[2019-07-10 11:25] LABS: Appearance,Urine Clear (Clear); Bilirubin,Urine Negative (Negative); Blood,Urine Negative (Negative); Color,Urine Light Yellow; Glucose,Urine (UA) Negative (Negative); Ketones,Urine Negative (Negative); Leukocyte Esterase,Urine Negative (Negative); Nitrite,Urine Negative (Negative); Protein,Urine Negative (Negative); Specific Gravity,Urine 1.011 (1.001-1.035); Urobilinogen,Urine <2.0 mg/dL (<2.0)
[2019-07-10 11:33] LABS: Albumin 4.5 g/dL (3.5-5.0); Magnesium 1.7 mg/dL (1.6-2.3); Potassium 4.5 mmol/L (3.5-5.1); Total Bilirubin 0.6 mg/dL (0.2-1.3); Total Protein 7.5 g/dL (6.3-8.2)
[2019-07-10 11:36] LABS: Basophils % (A) 0 %; Eosinophils # (A) 0.2 k/uL (0-0.7); Eosinophils % (A) 5 %; HGB 13.7 gm/dL (13.0-17.5); Lymphocytes # (A) 1.1 k/uL (1.0-4.8); Lymphocytes % (A) 25 %; MCH 29.5 pg (25.0-35.0); MCHC 34.2 g/dL (31.0-37.0); MCV 86.4 fL (80.0-100.0); Monocytes # (A) 0.4 k/uL (0-1.0); Monocytes % (A) 8 %; Neutrophils # (A) 2.5 k/uL (1.3-7.7); Neutrophils % (A) 59 %; Platelet Count 200 k/uL (150-450); RBC 4.63 m/uL (4.30-5.90); RDW 12.7 % (11.5-15.5); WBC 4.3 k/uL (3.8-10.6)
--- NOTE | 2019-07-10 11:40 | ED ---
General Adult HPI <Felton Izaguirre - Last Filed: 07/10/19 12:55> - General Source: patient, RN notes reviewed Mode of arrival: ambulatory Limitations: no limitations <Danilo Soriano - Last Filed: 07/10/19 12:59> - General Chief complaint: Nausea/Vomiting/Diarrhea Stated complaint: High BP, Diarrhea Time Seen by Provider: 07/10/19 10:41 - History of Present Illness Initial comments: 69-year-old male presents emergency from chief complaint of excessive diarrhea. Patient states that around 5:30 AM he woke up with extreme diarrhea and states it was just watery loose denies any melena back easily. Patient states he had some abdominal cramping that has resolved. Patient states he is concerned that he may be dehydrated his amount of fluid loss. He states last time he had symptoms like this she ended up in [facility] and which she called his primary care physician I advised him come emergency from for evaluation. Patient denies any dysuria hematuria no fevers chills no chest pain or palpitations. (Danilo Soriano) - Related Data Home Medications Medication Instructions Recorded Confirmed Albuterol Sulfate [Ventolin HFA] 2 puff INHALATION RT-Q4H PRN 04/08/14 05/25/19 Aspirin 81 mg PO DAILY 04/08/14 05/25/19 Atorvastatin [Lipitor] 10 mg PO HS 04/08/14 05/25/19 Hydrochlorothiazide [Hydrodiuril] 25 mg PO DAILY@1200 04/08/14 05/25/19 Tamsulosin HCl 0.4 mg PO HS 04/08/14 05/25/19 metFORMIN HCL [Glucophage] 1,000 mg PO BID 04/08/14 05/25/19 Fenofibrate Nanocrystallized 145 mg PO DAILY 07/16/17 05/25/19 [Tricor] Glimepiride [Amaryl] 1 mg PO AC-BRKFST 07/16/17 05/25/19 Levothyroxine Sodium [Synthroid] 50 mcg PO DAILY 07/16/17 05/25/19 Famotidine [Pepcid] 20 mg PO BID 05/25/19 05/25/19 Lisinopril [Prinivil] 10 mg PO HS 05/25/19 05/25/19 Lisinopril [Zestril] 10 mg PO DAILY@1700 05/25/19 05/25/19 Magnesium Oxide 400 mg PO DAILY 05/25/19 05/25/19 Vascepa 1gm 1 cap PO DAILY 05/25/19 05/25/19 Previous Rx's Medication Instructions Recorded Apixaban [Eliquis] 5 mg PO BID #60 tab 05/28/19 Metoprolol Tartrate [Lopressor] 25 mg PO BID #60 tab 05/28/19 Propafenone [Rythmol] 150 mg PO TID #90 tab 05/28/19 Allergies Allergy/AdvReac Type Severity Reaction Status Date / Time grass pollen Allergy Dyspnea Verified 07/10/19 10:32 moxifloxacin [From Avelox] Allergy lip Verified 07/10/19 10:32 swelling/SOB tree and shrub pollen Allergy Dyspnea Verified 07/10/19 10:32 banana [Banana] AdvReac Swelling Verified 07/10/19 10:32 Review of Systems ROS Other: All systems not noted in ROS Statement are negative. <Felton Izaguirre - Last Filed: 07/10/19 12:55> ROS Other: All systems not noted in ROS Statement are negative. <Danilo Soriano - Last Filed: 07/10/19 12:59> ROS Statement: Those systems with pertinent positive or pertinent negative responses have been documented in the HPI. 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 Father Additional Family Medical History / Comment(s): Father in his 60s from myocardial infarction. Patient has 1 brother and 1 sister with no major medical problems. Patient has 1 son and 1 daughter with no major medical problems. <BoDanilo - Last Filed: 07/10/19 12:59> General Exam Limitations: no limitations General appearance: alert, in no apparent distress Head exam: Present: atraumatic, normocephalic, normal inspection Eye exam: Present: normal appearance, PERRL, EOMI. Absent: scleral icterus, conjunctival injection, periorbital swelling ENT exam: Present: normal exam, mucous membranes moist Respiratory exam: Present: normal lung sounds bilaterally. Absent: respiratory distress, wheezes, rales, rhonchi, stridor Cardiovascular Exam: Present: regular rate, normal rhythm, normal heart sounds. Absent: systolic murmur, diastolic murmur, rubs, gallop, clicks GI/Abdominal exam: Present: soft, normal bowel sounds. Absent: distended, tenderness, guarding, rebound, rigid Neurological exam: Present: alert Skin exam: Present: warm, dry, intact, normal color. Absent: rash <BoDanilo Garrison - Last Filed: 07/10/19 12:59> Course Vital Signs 07/10/19 07/10/19 10:30 12:28 Temperature 98.0 F Pulse Rate 79 74 Respiratory 18 16 Rate Blood Pressure 147/77 132/73 O2 Sat by Pulse 99 99 Oximetry EKG Findings - EKG Comments: EKG Findings:: EKG performed at 11:26 normal sinus rhythm rate of 71. 198 QRS 116 QT/QTC 370/408 <BoDanilo Garrison - Last Filed: 07/10/19 12:59> Medical Decision Making - Lab Data Result diagrams: 07/10/19 11:10 07/10/19 11:10 <Felton Izaguirre - Last Filed: 07/10/19 12:55> - Lab Data Result diagrams: 07/10/19 11:10 07/10/19 11:10 <Danilo Soriano - Last Filed: 07/10/19 12:59> - Medical Decision Making case was discussed with Dr. Khan who does recommend admission secondary to elevated lipase and request GI consult. (Felton Izaguirre) - Lab Data Lab Results 07/10/19 07/10/19 07/10/19 Range/Units 11:10 11:10 11:10 WBC 4.3 (3.8-10.6) k/uL RBC 4.63 (4.30-5.90) m/uL Hgb 13.7 (13.0-17.5) gm/dL Hct 40.0 (39.0-53.0) % MCV 86.4 (80.0-100.0) fL MCH 29.5 (25.0-35.0) pg MCHC 34.2 (31.0-37.0) g/dL RDW 12.7 (11.5-15.5) % Plt Count 200 (150-450) k/uL Neutrophils % 59 % Lymphocytes % 25 % Monocytes % 8 % Eosinophils % 5 % Basophils % 0 % Neutrophils # 2.5 (1.3-7.7) k/uL Lymphocytes # 1.1 (1.0-4.8) k/uL Monocytes # 0.4 (0-1.0) k/uL Eosinophils # 0.2 (0-0.7) k/uL Basophils # 0.0 (0-0.2) k/uL Sodium 136 L (137-145) mmol/L Potassium 4.5 (3.5-5.1) mmol/L Chloride 103 (98-107) mmol/L Carbon Dioxide 23 (22-30) mmol/L Anion Gap 10 mmol/L BUN 27 H (9-20) mg/dL Creatinine 1.05 (0.66-1.25) mg/dL Est GFR (CKD-EPI)AfAm 84 (>60 ml/min/1.73 sqM) Est GFR (CKD-EPI)NonAf 73 (>60 ml/min/1.73 sqM) Glucose 135 H (74-99) mg/dL Calcium 11.0 H (8.4-10.2) mg/dL Magnesium 1.7 (1.6-2.3) mg/dL Total Bilirubin 0.6 (0.2-1.3) mg/dL AST 27 (17-59) U/L ALT 18 (4-49) U/L Alkaline Phosphatase 27 L (38-126) U/L Total Protein 7.5 (6.3-8.2) g/dL Albumin 4.5 (3.5-5.0) g/dL Amylase 102 (30-110) U/L Lipase 1291 H (23-300) U/L Urine Color Light Yellow Urine Appearance Clear (Clear) Urine pH 7.0 (5.0-8.0) Ur Specific [place] 1.011 (1.001-1.035) Urine Protein Negative (Negative) Urine Glucose (UA) Negative (Negative) Urine Ketones Negative (Negative) Urine Blood Negative (Negative) Urine Nitrite Negative (Negative) Urine Bilirubin Negative (Negative) Urine Urobilinogen <2.0 (<2.0) mg/dL Ur Leukocyte Esterase Negative (Negative) Disposition <Felton Izaguirre - Last Filed: 07/10/19 12:55> <Danilo Soriano - Last Filed: 07/10/19 12:59> Clinical Impression: Diarrhea, Acute pancreatitis Disposition: ADMITTED IP TO THIS HOSP Condition: Stable Referrals: Raya Clark MD [Primary Care Provider] - 1-2 days
[2019-07-10] MEDS ORDERED: NALOXONE 0.4 MG/ML 1 ML VIAL IV PRN (12:59)
[2019-07-10] MEDS ORDERED: KETOROLAC 30 MG/ML 1 ML VIAL IVP PRN (12:59)
[2019-07-10] MEDS ORDERED: HYDROmorphone 0.5 MG/0.5 ML SYRINGE IVP PRN (12:59)
--- NOTE | 2019-07-10 13:49 | US ---
EXAMINATION TYPE: US abdomen limited DATE OF EXAM: 07/10/2019 COMPARISON: Previous study dated 02/24/2019. CLINICAL HISTORY: Pain, pancreatitis, elevated lipase. EXAM MEASUREMENTS: Liver Length: 12.9 cm Gallbladder Wall: 0.4 cm CBD: 0.5 cm Right Kidney: 12.5 x 4.6 x 4.5 cm Pancreas: Tail obscured by overlying bowel gas, heterogeneous Liver: wnl Gallbladder: 3 echogenic foci seen in contracted appearing gallbladder (patient states he is NPO, on e towards neck, mid and fundal portion, wall appears somewhat thickened, it is unclear whether these are polyps vs non-shadowing stones Evidence for sonographic Silvestre's sign: no CBD: wnl Right Kidney: wnl Limited views of the pancreas are unremarkable. The liver is normal in size without biliary dilatation. There are at least 3 gallstones within the gallbladder. The gallbladder wall is thickened measuring 4 mm. This common hepatic duct measures 5 mm. There is no sonographic Silvestre's sign. The right kidney is normal. IMPRESSION: CHOLELITHIASIS AND POSSIBLE ACUTE OR CHRONIC CHOLECYSTITIS.
[2019-07-10] MEDS: SODIUM CHLORIDE 0.9% 1,000 ML IV SCH ×2 (13:50→17:13)
[2019-07-10] MEDS ORDERED: ALBUTEROL NEBULIZED 2.5 MG/3 ML INHALATION PRN (16:36)
[2019-07-10] MEDS ORDERED: ONDANSETRON 4 MG/2 ML VIAL IVP PRN (16:38)
[2019-07-10] MEDS: INSULIN ASPART (NovoLOG) 100 UNIT/ML VIAL SQ SCH ×2 (17:06→20:53)
[2019-07-10 17:13] LABS: Glucose,Whole Blood 102 mg/dL (75-99)
[2019-07-10 20:09] LABS: Glucose,Whole Blood 87 mg/dL (75-99)
[2019-07-10] MEDS: FAMOTIDINE 20 MG TAB PO SCH (21:00)
[2019-07-10] MEDS ORDERED: TAMSULOSIN 0.4 MG CAP.ER.24H PO SCH (21:00)
[2019-07-10] MEDS: PROPAFENONE 150 MG TAB PO SCH (21:00)
[2019-07-10] MEDS: METOPROLOL TARTRATE 50 MG TAB PO SCH (21:00)
[2019-07-10] MEDS ORDERED: ATORVASTATIN 10 MG TAB PO SCH (21:00)
[2019-07-10] MEDS: APIXABAN 5 MG TAB PO SCH (21:00)
[2019-07-10] MEDS ORDERED: ACETAMINOPHEN TAB 325 MG TAB PO PRN (22:29)
[2019-07-10] MEDS ORDERED: LISINOPRIL 10 MG TAB PO PRN (22:29)
[2019-07-11 00:45] LABS: Glucose,Whole Blood 84 mg/dL (75-99)
[2019-07-11] MEDS ORDERED: LEVOTHYROXINE 50 MCG TAB PO SCH (06:00)
[2019-07-11 07:09] LABS: Glucose,Whole Blood 95 mg/dL (75-99)
[2019-07-11 07:33] LABS: Basophils % (A) 0 %; Eosinophils # (A) 0.2 k/uL (0-0.7); Eosinophils % (A) 5 %; HCT 38.9 % (39.0-53.0); Lymphocytes # (A) 1.6 k/uL (1.0-4.8); Lymphocytes % (A) 37 %; MCH 29.2 pg (25.0-35.0); MCHC 33.3 g/dL (31.0-37.0); MCV 87.6 fL (80.0-100.0); Mean Platelet Volume 8.7; Monocytes # (A) 0.3 k/uL (0-1.0); Monocytes % (A) 7 %; Neutrophils % (A) 47 %; Platelet Count 177 k/uL (150-450); RBC 4.44 m/uL (4.30-5.90); RDW 12.8 % (11.5-15.5); WBC 4.2 k/uL (3.8-10.6)
[2019-07-11 07:50] LABS: Calcium 9.7 mg/dL (8.4-10.2); Potassium 3.8 mmol/L (3.5-5.1); Total Bilirubin 0.7 mg/dL (0.2-1.3); Total Protein 6.8 g/dL (6.3-8.2)
[2019-07-11] MEDS: INSULIN ASPART (NovoLOG) 100 UNIT/ML VIAL SQ SCH ×2 (08:04→11:58)
[2019-07-11] MEDS: FAMOTIDINE 20 MG TAB PO SCH (08:53)
[2019-07-11] MEDS: APIXABAN 5 MG TAB PO SCH (08:53)
[2019-07-11] MEDS: METOPROLOL TARTRATE 50 MG TAB PO SCH (08:54)
[2019-07-11] MEDS: PROPAFENONE 150 MG TAB PO SCH (08:55)
[2019-07-11] MEDS ORDERED: FENOFIBRATE 160 MG TAB PO SCH (09:00)
[2019-07-11] MEDS ORDERED: HYDROCHLOROTHIAZIDE 25 MG TAB PO SCH (09:00)
[2019-07-11 11:30] VITALS: BP 118/67; PULSE 59; RESP 20; TEMP 98
[2019-07-11 11:50] LABS: Glucose,Whole Blood 112 mg/dL (75-99)
[2019-07-11] MEDS: SODIUM CHLORIDE 0.9% 1,000 ML IV SCH (15:27)
--- NOTE | 2019-07-11 17:58 | CONS ---
CONSULTATION DATE OF DICTATION: 07/11/2019 REASON FOR CONSULTATION: Diarrhea and acute pancreatitis. HISTORY OF PRESENT ILLNESS: The patient is a 69-year-old pleasant white male who came into the hospital complaining of severe diarrhea that started yesterday around 5:30 a.m. The patient states that the night before he went out to have dinner at a restaurant, and after that he started having some cramping lower abdominal pain. The cramping subsided, then he felt extremely nauseated and subsequently had several episodes of diarrhea. He went at least 10 or 15 times daily and came to the emergency room yesterday, worried that he was dehydrated. When he came to the emergency room he was noted to have mild elevation of lipase and hence was admitted to the hospital for possible acute pancreatitis. The patient during that time did not have any abdominal pain. This morning he is feeling better. The diarrhea has also completely resolved. No further episodes of nausea. Tolerating a clear liquid diet well and wants to go home. PAST MEDICAL HISTORY: Significant for hypertension, hyperlipidemia, hypothyroidism, gastroesophageal reflux disease, diabetes mellitus, asthma and atrial fibrillation. PAST SURGICAL HISTORY: Surgery for deviated septum, colonoscopy several years ago by Dr. Parker. MEDICATIONS: Medications at home include albuterol, aspirin, Lipitor, HydroDIURIL, Glucophage, TriCor, Amaryl, Pepcid, Prinivil, Zestril, magnesium oxide. ALLERGIES: AVELOX. SOCIAL HISTORY: No smoking. No alcohol use. FAMILY HISTORY: Unremarkable. Mother at age 90. Father of coronary artery disease/[place]. REVIEW OF SYSTEMS: CARDIOPULMONARY: No chest pain or shortness of breath. GENITOURINARY: No dysuria or hematuria. MUSCULOSKELETAL: Unremarkable. SKIN: Unremarkable. ENDOCRINE: Unremarkable. PSYCHIATRIC: Unremarkable. NEUROLOGY: Unremarkable. ENT/VISION: Unremarkable. CONSTITUTIONAL: No recent weight loss. No fever, chills, night sweats. PHYSICAL EXAMINATION: Blood pressure 118/67, pulse rate 59, temperature 98. HEENT examination unremarkable. Conjunctivae pink. Sclerae anicteric. Oral cavity no lesions. NECK: No JVD or lymph node enlargement. CHEST: Clear to auscultation. HEART: Regular rate and rhythm. ABDOMEN: Soft. Bowel sounds are positive. No organomegaly. EXTREMITIES: No pedal edema. SKIN: No rashes. NEUROLOGIC: Alert and oriented x3. No focal deficits. LABS: Labs done at the time of admission to the hospital yesterday showed WBC 4.2, hemoglobin 13, platelets normal. Basic metabolic panel within normal limits. Lipase was 1291. Amylase was 102. Today lipase is down to 340. Amylase is 56. IMPRESSION: 1. This is a patient who presented to the hospital with acute onset of cramping lower abdominal pain followed by severe diarrhea that started at 5:30 a.m. yesterday morning. He had several episodes of loose watery bowel movements. That has completely resolved. Most likely we are dealing with a viral gastroenteritis that has subsided. Doubt food poisoning. 2. Mild elevation of lipase consistent with acute pancreatitis. Lipase was 1291 and today normalized to 340. He did have an abdominal ultrasound done that showed cholelithiasis but no biliary ductal dilation. At this time possibility of nonspecific elevation of lipase from acute gastroenteritis is also a consideration. RECOMMENDATIONS: 1. Advance diet as tolerated. 2. Patient can be discharged home today with outpatient followup in 3-4 weeks. Thank you for this consultation. MMODL / IJN: [id number] /
--- NOTE | 2019-07-11 20:02 | P.HPIM ---
History of Present Illness H&P Date: 07/11/19 This will serve both an H&P and discharge summary This is a 69-year-old male patient of Dr. 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 Patient had a positive: Guarded done at Dr. Clark's office and subsequently was scheduled for colonoscopy with Dr. Rogers. Patient states he started doing the prep for the colonoscopy and he will was checking his blood pressure and it was running high and he was feeling palpitations and felt clammy. He denies any lightheadedness or dizziness. He states his blood pressure usually runs 120/78 but his diastolic number was over 100. He states he has been taking all of his blood pressure medications as directed. He denies any history of atrial fibrillation. He did have a heart catheterization 78 years ago which was done by Dr. Hernandez and patient reports as normal. last admission from our facility 05/26/2019 secondary to palpitations . Echocardiogram reveals EF of 50-55% with mild concentric left ventricular hypert rophy, mild aortic regurgitation, mild mitral regurgitation, mild tricuspid regurgitation, no pulmonary hypertension. he presents to the emergency room again this time secondary to watery stools abdominal cramps, of one day duration. Patient is concerned as he gets into a atrial fibrillation if he gets dehydrated, lipase on admission was 1291, patient was placed on nothing by mouth status, with consult to gastroenterology.echo abdominal ultrasound was done that shows 3 gallstones within the gallbladder, gallbladder wall is thickened measuring 4 mm, common bile that is 5 mm, negative for Silvestre sign, right kidney is normal, pancreas limited views are unremarkable liver is normal size without dilatation. 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 History of Any Multi-Drug Resistant Organisms: None Reported Past Surgical History: Heart Catheterization Additional Past Surgical History / Comment(s): deviated septum repair, COLONOSCOPY, Past Anesthesia/Blood Transfusion Reactions: No Reported Reaction Smoking Status: Former smoker - Past Family History Mother Family Medical History: No Reported History Additional Family Medical History / Comment(s): Mother at age 90 from heart failure. Father Additional Family Medical History / Comment(s): Father in his 60s from myocardial infarction. Patient has 1 brother and 1 sister with no major medical problems. Patient has 1 son and 1 daughter with no major medical problems. Medications and Allergies Home Medications Medication Instructions Recorded Confirmed Type Albuterol Sulfate [Ventolin HFA] 2 puff INHALATION RT-Q4H PRN 04/08/14 07/10/19 History Atorvastatin [Lipitor] 10 mg PO HS 04/08/14 07/10/19 History Hydrochlorothiazide [Hydrodiuril] 25 mg PO DAILY@1600 04/08/14 07/10/19 History Tamsulosin HCl 0.4 mg PO HS 04/08/14 07/10/19 History metFORMIN HCL [Glucophage] 1,000 mg PO BID 04/08/14 07/10/19 History Fenofibrate Nanocrystallized 145 mg PO DAILY 07/16/17 07/10/19 History [Tricor] Glimepiride [Amaryl] 1 mg PO AC-BRKFST 07/16/17 07/10/19 History Levothyroxine Sodium [Synthroid] 50 mcg PO DAILY 07/16/17 07/10/19 History Famotidine [Pepcid] 10 mg PO BID 05/25/19 07/10/19 History Lisinopril [Zestril] 10 mg PO DAILY PRN MDD OVER 130 05/25/19 07/10/19 History Vascepa 1gm 1 cap PO DAILY 05/25/19 07/10/19 History Apixaban [Eliquis] 5 mg PO BID #60 tab 05/28/19 07/10/19 Rx Propafenone [Rythmol] 150 mg PO TID #90 tab 05/28/19 07/10/19 Rx Metoprolol Tartrate [Lopressor] 50 mg PO BID 07/10/19 07/10/19 History Allergies Allergy/AdvReac Type Severity Reaction Status Date / Time grass pollen Allergy Dyspnea Verified 07/10/19 14:11 moxifloxacin [From Avelox] Allergy lip Verified 07/10/19 14:11 swelling/SOB tree and shrub pollen Allergy Dyspnea Verified 07/10/19 14:11 banana [Banana] AdvReac Swelling Verified 07/10/19 14:11 Physical Exam Vitals: Vital Signs Temp Pulse Resp BP Pulse Ox 07/11/19 11:29 98 F 59 L 20 118/67 100 07/11/19 05:00 97.0 F L 57 L 16 107/62 97 07/10/19 22:14 64 129/81 07/10/19 21:02 97.7 F 69 16 163/74 100 Intake and Output 07/11/19 07/11/19 07/11/19 06:59 14:59 22:59 Intake Total 0 680 Balance 0 680 Intake: Intake, IV Titration 680 Amount Sodium Chloride 0.9% 1, 680 000 ml @ 40 mls/hr IV . Q24H PEGGY Rx#:[id number] Oral 0 Other: Voiding Method Toilet # Voids 2 # Bowel Movements 0 Results CBC & Chem 7: 07/11/19 07:02 07/11/19 07:02 Labs: Abnormal Lab Results - Last 24 Hours (Table) 07/11/19 07/11/19 07/11/19 Range/Units 07:02 07:02 11:38 Hct 38.9 L (39.0-53.0) % POC Glucose (mg/dL) 112 H (75-99) mg/dL Alkaline Phosphatase 23 L (38-126) U/L Lipase 340 H (23-300) U/L Thrombosis Risk Factor Assmnt - Choose All That Apply Any of the Below Risk Factors Present?: No Other Risk Factors: Yes Each Risk Factor Represents 2 Points: Age 61-74 years Thrombosis Risk Factor Assessment Total Risk Factor Score: 2 Thrombosis Risk Factor Assessment Level: Low Risk Assessment and Plan Plan: Assessment and Plan Plan: 1. acute pancreatitis, etiology is unknown, no common bile duct dilatation, possibly spontaneous passage of gallbladder stones, liver function test is normal including alkaline phosphatasepatient was adamant on being discharged today, as he gets visit for the holidays, patient was educated on a low-fat diet, and maintain complete abstinence from alcohol, his last alcohol was 40 years ago,clear liquid diet is tolerated, and will be discharged to home on dietary modifications,follow-up with Dr. Montez outpatient with lab values, continue on Lipitor at this time, 2. Gastroenteritis, resolved diarrhea resolved, abdominal cramping has resolved suspected viral, doubt food poisoning 3 history ofparoxysmal atrial fibrillation presented with Huan rosa RVR.c urrently sinus follows with cardiology outpatient rdiology consult appreciated. . Continue Lopressor 25 mg twice daily, eliquis 5 mg twice a day 3. Hypertension. Continue lisinopril 10 mg at bedtime, Lopressor 25 mg twice daily, Rythmol 150 mg 3 times daily. 4. Hyperlipidemia. Continue Lipitor 10 mg at bedtime, fenofibrate 160 mg daily. 5. Diabetes mellitus type 2. Continue glimepiride 1 mg with breakfast, NovoLog scale before meals and at bedtime 6. Hypothyroidism. Continue levothyroxine 50 g daily 7. Benign prostatic hypertrophy. Continue Flomax 0.4 mg at bedtime and monitor for urinary retention. 8. History of ischemic optic neuropathy affecting vision in the right eye. 9. Mild intermittent asthma, stable without exacerbation. Albuterol as needed. 10. Gastroesophageal reflux disease. Pepcid. 11. DVT prophylaxis. Heparin drip. Discharge plan: Return home per patient's insistence stablefor discharge compliance of diet labs outpatient lipase lipid panel Discharge Medication List Albuterol Sulfate [Ventolin HFA] 2 puff INHALATION RT-Q4H PRN 04/08/14 [History] Atorvastatin [Lipitor] 10 mg PO HS 04/08/14 [History] Hydrochlorothiazide [Hydrodiuril] 25 mg PO DAILY@1600 04/08/14 [History] Tamsulosin HCl 0.4 mg PO HS 04/08/14 [History] metFORMIN HCL [Glucophage] 1,000 mg PO BID 04/08/14 [History] Fenofibrate Nanocrystallized [Tricor] 145 mg PO DAILY 07/16/17 [History] Glimepiride [Amaryl] 1 mg PO AC-BRKFST 07/16/17 [History] Levothyroxine Sodium [Synthroid] 50 mcg PO DAILY 07/16/17 [History] Famotidine [Pepcid] 10 mg PO BID 05/25/19 [History] Lisinopril [Zestril] 10 mg PO DAILY PRN MDD OVER 130 05/25/19 [History] Vascepa 1gm 1 cap PO DAILY 05/25/19 [History] Apixaban [Eliquis] 5 mg PO BID #60 tab 11/09/19 [Rx] Propafenone [Rythmol] 150 mg PO TID #90 tab 05/28/19 [Rx] Metoprolol Tartrate [Lopressor] 50 mg PO BID 07/10/19 [History]
== END 2019-07-11 15:50 | disposition home or self-care (01) | DRG 440 ==
LOC: EC 09:50 → 5NMEDONC 14:02
PROVIDERS: ADMIT Internal Medicine; ATTEND Internal Medicine
DX: K85.90 Acute pancreatitis without necrosis or infection, unspecified (principal); A08.4 Viral intestinal infection, unspecified; K80.20 Calculus of gallbladder without cholecystitis without obstruction; I10 Essential (primary) hypertension; I48.0 Paroxysmal atrial fibrillation; E78.5 Hyperlipidemia, unspecified; E03.9 Hypothyroidism, unspecified; E11.9 Type 2 diabetes mellitus without complications; J45.20 Mild intermittent asthma, uncomplicated; I08.3 Combined rheumatic disorders of mitral, aortic and tricuspid valves; E04.9 Nontoxic goiter, unspecified; K21.9 Gastro-esophageal reflux disease without esophagitis; H47.011 Ischemic optic neuropathy, right eye; N40.0 Benign prostatic hyperplasia without lower urinary tract symptoms; Z79.01 Long term (current) use of anticoagulants; Z79.84 Long term (current) use of oral hypoglycemic drugs; Z79.890 Hormone replacement therapy; Z79.82 Long term (current) use of aspirin; Z79.899 Other long term (current) drug therapy; Z87.891 Personal history of nicotine dependence; Z98.890 Other specified postprocedural states; Z88.1 Allergy status to other antibiotic agents; Z91.018 Allergy to other foods; Z91.048 Other nonmedicinal substance allergy status; Z82.49 Family history of ischemic heart disease and other diseases of the circulatory system
CPT/HCPCS: 36415; 76705; 80053; 81003; 82150; 83690; 83735; 85025; 93005; 96360; 99285

== ENCOUNTER → 2019-07-18 | Outpatient (CLI) | payer MEDICARE, OTHER ==
--- NOTE | 2019-07-18 23:33 | CT ---
EXAMINATION TYPE: CT abdomen wo/w con DATE OF EXAM: 07/18/2019 COMPARISON: Limited abdominal ultrasound July 10, 2019. HISTORY: abnormal liver function results CT DLP: 1249 mGycm, Automated Exposure Control for Dose Reduction was Utilized. CONTRAST: CT scan of the abdomen is performed with oral water and without and with IV Contrast, patient injecte d with 100 mL of Isovue 370. Pancreas protocol. FINDINGS: LUNG BASES: No significant abnormality is appreciated. LIVER/GB: Gallstones on ultrasound must well seen on CT. No surrounding inflammatory change to gallbl adder noted. PANCREAS: Pancreas is overall normal in size. There is fairly homogeneous enhancement. No surrounding ill-defined fluid or fat stranding seen. No glandular calcifications or ductal dilatation noted.. SPLEEN: No significant abnormality is seen. ADRENALS: No significant abnormality is seen. KIDNEYS: Noncontrast images show no renal calculi bilaterally. There is no concerning solid or cystic renal mass or hydronephrosis seen bilaterally. BOWEL: No significant abnormality is seen. LYMPH NODES: No greater than 1cm abdominal lymph nodes are appreciated. OSSEOUS STRUCTURES: [id number] multilevel spurring in the thoracolumbar spine. OTHER: No significant additional abnormality is seen. IMPRESSION: No CT evidence for complication related to acute pancreatitis.
== END | disposition home or self-care (01) ==
LOC: RADCTMAIN 14:59
PROVIDERS: ATTEND Internal Medicine
DX: R94.5 Abnormal results of liver function studies (principal)
CPT/HCPCS: 74170; Q9967

== ENCOUNTER → 2019-07-29 | Outpatient (CLI) | payer MEDICARE, OTHER ==
--- NOTE | 2019-07-29 15:07 | NM ---
EXAMINATION TYPE: NM hepatobiliary w EF DATE OF EXAM: 07/29/2019 COMPARISON: CT July 18, 2019. Limited abdominal ultrasound July 10, 2019 HISTORY: Disease or biliary tract per order. Epigastric pain with diminished appetite and heartburn a long with reflux-like symptoms for patient's TECHNIQUE: After the intravenous administration of 5.3 mCi Tc 99m Mebrofenin hepatobiliary scintigrap hy is performed. Immediate images post injection. FINDINGS: There is satisfactory initial accumulation of tracer by the liver. The gallbladder is visualized wit hin 20 minutes. The small bowel activity is not well seen even after 60 minutes. At one hour 8 ounc es of oral ensure plus is given to mimic CCK and gallbladder ejection fraction is calculated at 69 %, in the normal range. Therefore there is no scintigraphic evidence of cystic or common bile duct obs truction to suggest acute cholecystitis or gallbladder dyskinesia. IMPRESSION: Exam is within normal limits.
== END | disposition home or self-care (01) ==
LOC: RADNMMAIN 12:46
PROVIDERS: ATTEND Internal Medicine
DX: K83.9 Disease of biliary tract, unspecified (principal)
CPT/HCPCS: 78226; A9537

== ENCOUNTER → 2019-09-28 | Outpatient (CLI) | payer MEDICARE, OTHER ==
--- NOTE | 2019-09-28 11:11 | US ---
EXAMINATION TYPE: US thyroid st tissue head/neck DATE OF EXAM: 09/28/2019 COMPARISON: 01/11/2015 CLINICAL HISTORY: E04.2 Non-toxic multinodular goiter. Thyroid nodules GLAND SIZE: Right Lobe: 7.0 x 4.2 x 3.7 cm Overall Parenchyma: heterogenous Left Lobe: 7.9 x 4.0 x 2.8 cm Overall Parenchyma: heterogeneous Isthmus Thickness: .7 cm NODULES RIGHT: # of nodules measured on right: Cluster of nodules measured 1 1. 5.8 X 3.4 x 3.2 cm hypoechoic solid nodule at the lower pole with poorly defined margins; . Thi s nodule is wider than tall and shows intranodular vascularity. Prior size: 3.1 x 2.8 x 2.3 cm LEFT: # of nodules measured on left: 1 1. 4.0 X 5.2 x 4.7 cm hypoechoic solid nodule at the lower pole with poorly defined margins; . Thi s nodule is taller than wide and shows intranodular vascularity. Prior size: 5.6 x 4.5 x 3.2 cm ISTHMUS: # of nodules measured in the isthmus: 0 Bilateral neck scanned, no evidence of lymphadenopathy. IMPRESSION: Diffusely enlarged and heterogenous thyroid gland with bilateral thyroid nodules. Interva l growth of the right thyroid nodule now measuring up to 5.8 cm and previously measuring up to 3.1 cm . Fine-needle aspiration is recommended for this nodule if not previously performed. No interval grow th of the left thyroid nodule.
== END | disposition home or self-care (01) ==
LOC: RADUSWWP 09:55
PROVIDERS: ATTEND Internal Medicine
DX: E04.2 Nontoxic multinodular goiter (principal); E04.9 Nontoxic goiter, unspecified
CPT/HCPCS: 76536